=== PATIENT | female | born 1975 | race Caucasian/White ===

== ENCOUNTER 2017-08-29 08:28 | Outpatient (RCR) | payer OTHER, SELFPAY ==
--- NOTE | 2017-08-29 14:23 | BH.SGPN ---
Service Group Progress Note - Session Psychotherapy Session #2 Date Open:: 08/29/17 Time Started:: 10:10 Time Stopped:: 11:04 Targeted Problem #:: 1 Type of Group:: Illness Management - 7 Participants Goal of Group:: To increase understanding of mindfulness and explore the benefits of mindfulness and what thoughts are prohibiting group members from staying in the here and now. Client Response/Progress/Benefit:: Client entered session alert and attentive AEB nodding in agreement with peers and taking notes. Client contributed well to group. Client participated in group discussion about the difficulties of staying in the present moment. Client participated in group activity designed to reduce negative thoughts and current stressors. Client completed stressor worksheet and was tearful throughout much of the activity. Client identified various stressors including, never going to get better, stressing out my and my kids, and not know whats wrong with me. Client elaborated to say, I just dont see how any of this is going to help. I had a break down in front of my daughter. Therapist informed client about the effects of depression and feelings of hopelessness and peers provided support. Client benefitted from group by identifying current stressors in life and the impact they have on daily functioning. Progress noted in clients ability to identify stressors in life. Continued treatment necessary to decrease levels of anxiety and depressive symptoms. Eye Contact:: Fair Motor Activity:: Appropriate Appearance:: Casual Speech:: Appropriate Mood:: Anxious - boucing legs Affect:: Congruent Thoughts:: Linear, Logical, No evidence of hallucinations/delusions noted Staff Interventions:: Therapist facilitated discussion about mindfulness and benefits mindfulness practice can have. Therapist led group in an experiential activity designed to reduce negative thoughts and worries and bring client into the present moment and practice techniques designed to reduce anxiety and stress. Therapist provided a worksheet to complete that asked questions about possible stressor and overwhelming thoughts that take up their attention. Therapist led in the processing of the activity, worksheet, and assisted client in connecting how when faced with overwhelming thoughts or negative self-talk and the impact it has to daily functioning. Psychotherapy Session #3 Date Open:: 08/29/17 Time Started:: 11:10 Time Stopped:: 12:05 Targeted Problem #:: 1 Type of Group:: Functional Skills Development - 7 Participants Goal of Group:: To identify the impact that negative thinking patterns has had on group members lives and how using mindfulness techniques and coping strategies can assist group members in managing overwhelming thoughts and feelings. Client Response/Progress/Benefit:: Client was alert and attentive. Client participated in group discussion about coping strategies to use to bring client back to the here and now and provided examples of coping strategies she uses such as yoga. Client created a mindfulness kit and chose things that she thought looked pretty and all the coping skills to practice. Client was beginning to feel overwhelmed which skills to choose from and peers provided support and encouraged her to take her time. Client created a stress ball and identified the coping strategies she would use to decrease her worries as, [id number], breathing, SOS, and being kind to myself. Client benefitted from creating a mindfulness to that includes tangible items that can help client to remember to use positive skills that can be helpful to her identifying ruminating thoughts. Progress noted in clients ability to identify coping skills that are beneficial to her stressors. Continued treatment necessary to decrease anxiety levels. Eye Contact:: Good Motor Activity:: Appropriate Appearance:: Casual Speech:: Appropriate Mood:: Anxious Affect:: Congruent Thoughts:: Linear, Logical, No evidence of hallucinations/delusions noted Staff Interventions:: Therapist discussed varying coping strategies to use to reduce ruminating thoughts. Therapist provided each group member with various types of items and asked each member to select five items that represent something that would be helpful in creating awareness of warning signs and that will assist in bringing clients back to present moment. Therapist facilitated group processing of the mindfulness kits that each group member created. Therapist used open-ended questions to encourage elaboration of each time chosen for their kits. Therapist helped clients connect how the mindfulness kits can be used as a prevention tool and reminder to use mindfulness strategies.
--- NOTE | 2017-08-29 15:08 | BH.MDN ---
Multi-Disciplinary Note - Note 60-min Individual Time Started:: 12:15 Date: 08/29/17 Purpose of session/treatment goals addressed:: The purpose of this session was to build rapport with client and gather information on client's current stressors, symptoms, functioning, and treatment goals. Eye Contact:: Fair Motor Activity:: Restless - AEB shaking leg and rubbing arms Appearance:: Neat Speech:: Rapid Mood:: Anxious, Dysthymic Affect:: Congruent - tearful Thoughts:: Circular, No evidence of hallucinations/delusions noted Staff Interventions:: Therapist used open-ended questions and active listening to explore client's current stressors, symptoms, functioning, and treatment goals. Therapist provided emotional validation and support as client expressed frustration with mental health symptoms. Therapist helped client identify warning signs, supports, and past helpful coping skills. Client Response:: Client open to meeting with therapist, engaged throughout. Client reported she came PHP as her anxiety and depression have worsened since April. Client shared I've had so many medication changes and I think that's why I feel this way. Client stated her psychiatrist referred her to the program due to client's increased severity and passive suicidal thoughts. Client shared she is unsure of a specific trigger which leads client to believe her symptoms are all medication induced. Client was receptive to discussion of external and internal stressors that contribute to mental health. Client shared she has had anxiety since she was 21, but then I took medication and it was fine. Client expressed she is frustrated that she cannot fix her symptoms by herself as well as that client is unsure of the problem. Client reported she had a panic attack in June and has been struggling with depression. Client shared she has loss of concentration, agitation, restlessness, and no appetite. Client stated current use of Lexapro, but reports belief it is not helpful. Client frequently used the statement it's like I went backwards throughout session which demonstrates client's feelings of shame, guilt, and hopelessness. Client stated her , [id number], and friends are supportive and have helped client throughout this time. Client reported in the past getting out of the house, talking to people, yoga, and having a daily routine helped client cope. Risks/Concerns:: Client reports high anxiety, agitation, and restlessness that increases negative thinking. Client denies suicidal ideation, plan, and intent. Client future oriented throughout session as evidenced by her reports of family and returning to work. Progress Toward Goals/Plan:: Client first day in PHP, therefore no progress to document at this time. Client to continue PHP to promote mood stability, medication management, increase coping skills, and prevent decompensation. Time Stopped:: 13:10
--- NOTE | 2017-08-29 16:03 | BH.SGPN_ITS ---
Service Group Progress Note - Session Psychotherapy Session #1 Date Open:: 08/29/17 Time Started:: 09:01 Time Stopped:: 09:58 Targeted Problem #:: 1 Type of Group:: Process - 7 participants Goal of Group:: The goal of today's group was to check-in with client's mood, stressors, and positives, review homework and introduce topic for the day. Client Response/Progress/Benefit:: Client first day in the program and initially took on an observatory role as she was adjusting to group dynamics. Client appeared to benefit from the open and inviting atmosphere of the group as well as the supportive feedback and encouragement provided as Client discussed difficulties managing sx of anxiety. Client did well to engage with the group and openly shared with the group. She reports previously experiencing panic and anxiety sx during her early adulthood and had successfully managed them up until now. Client unable to identify any new triggers or stressors contributing to the resurfacing of her symptoms. When asked how she previously managed her sx, client indicated i don't know, it just wasn't a problem...I don 't know why this is happening to me. Client recommended continued PHP tx to work on maintaining stability and increasing level of understanding and awareness regarding Client warning signs, triggers, and potential healthy coping mechanisms related to anxiety. Eye Contact:: Good Motor Activity:: Restless - AEB fidgetting with shirt, rubbing hands on jeans, and shaking leg Appearance:: Casual Speech:: Appropriate Mood:: Anxious, Irritable, Depressed Affect:: Congruent Thoughts:: Linear, Logical, No evidence of hallucinations/delusions noted Staff Interventions:: Therapist used open-ended questions to elicit information about client's current stressors and mood state. Therapist was supportive by using active listening and reflection.
--- NOTE | 2017-08-30 10:27 | BH.SGPN ---
Service Group Progress Note - Session Psychotherapy Session #1 Date Open:: 08/30/17 - 7 group members Time Started:: 08:57 Time Stopped:: 10:07 Targeted Problem #:: 1 Type of Group:: Process Goal of Group:: The goal of today's group was to check-in with client's mood, stressors, and positives, review homework and introduce topic for the day. Client Response/Progress/Benefit:: Client responded well to session, quiet, but participating when prompted by therapist. Client reports feeling apprehensive today as client continues to have uncertainty about PHP and mental health treatment. Client shared after she left group yesterday I threw myself a pity alliance party. Client stated this made her feel worse and led to negative thinking. Client reported she contacted her boss and he was supportive of client needing time off work for mental health. Client expressed she felt guilt about missing work, but with group and therapist feedback, client challenged the guilt by stating I'm working on me so I can function. Client appeared to benefit from challenging negative thoughts and receiving supportive statements from peers. Eye Contact:: Fair Motor Activity:: Restless - AEB rubbing legs and arms, moving in chair. Appearance:: Casual Speech:: Appropriate Mood:: Anxious, Dysthymic Affect:: Congruent Thoughts:: Racing, No evidence of hallucinations/delusions noted Staff Interventions:: Therapist used open-ended questions to elicit information about client's current stressors and mood state. Therapist was supportive by using active listening and reflection.
--- NOTE | 2017-08-30 13:26 | BH.SGPN ---
Service Group Progress Note - Session Psychotherapy Session #2 Date Open:: 08/30/17 Time Started:: 10:20 Time Stopped:: 11:10 Targeted Problem #:: 1 Type of Group:: Process - 7 participants Goal of Group:: To increase understanding of what strengths are and identify individual strengths. Client Response/Progress/Benefit:: Client second day in PHP program and is still adjusting to the dynamics of the group, taking on a passive participatory role during portions of the discussion. CLient did well to engage as group progressed and provided input regarding the importance of challenging negative self-talk and identifying one's personal strengths. CLient shared knowing that how she speaks to herself is impacting her anxiety and depression but struggles to focus on the positives. Client benefited from the activity in which participants were challenged to identify 5 personal strengths and indicated that her strengths include her sense of humor, honesty, reliability, and ability to be a good and mother. Client displayed progress in her willingness to open up to the group and begin to try and challenge her use of self depricating talk. She appears to struggle with significant distorted thinking patterns and little insight as to how she may challenge this thoughts. Recommended ongoing PHP to increase insight and understanding of her anxiety as well as identify strategies to decrease frequency and intensity of sx. Eye Contact:: Good Motor Activity:: Appropriate Appearance:: Casual Speech:: Appropriate Mood:: Anxious, Depressed Thoughts:: Linear, Logical, No evidence of hallucinations/delusions noted Staff Interventions:: Therapist facilitated discussion about what are strengths and assisted group members in identifying examples of strengths. Therapist led an activity in which group members were given the opportunity to identify five personal strengths and how not utilizing these strengths may prevent progress and successful management of mental health symptoms. Therapist assisted clients in connecting the importance of recognizing personal strengths in order to most effectively manage mental health symptoms. Psychotherapy Session #3 Date Open:: 08/30/17 Time Started:: 11:19 Time Stopped:: 12:17 Targeted Problem #:: 1 Type of Group:: Functional Skills Development - 6 participants Goal of Group:: To identify what gets in their way of recognizing and utilizing their strengths and identifying ways to challenge negative thoughts preventing strengths recognition as well as make strengths easier to access. Client Response/Progress/Benefit:: Client attentive and willing to participate in both the discussion and activity portions of the session. She worked with fellow participants to complete the cup stacking activity challenging group members to identify ways overcome the restrictions placed on the group in order to complete the task. Client did well to connect the activity with challenging her perspective regarding potential weaknesses or negative thoughts. Client benefited from taking time to complete perspective challenging worksheet. She identified that she could challenge her thought of the anxiety is going to take over with I have been able to overcome this before and I haven't failed if I keep trying to fight. Client recommended continued PHP to further challenge and replace distorted thinking patterns. Eye Contact:: Fair Motor Activity:: Appropriate Appearance:: Casual Speech:: Appropriate Mood:: Anxious, Depressed Affect:: Congruent Thoughts:: Linear, Logical, No evidence of hallucinations/delusions noted Staff Interventions:: Therapist utilized an activity as a tool in helping clients recognize the things that can get in their way from utilizing their strengths and identify alternative ways to view these barriers. Therapist processed the activity, helping others connect challenges that keep them from recognizing and using their strengths. Therapist provided support by using active listening and providing feedback.
--- NOTE | 2017-08-30 13:47 | BH.MDN ---
Multi-Disciplinary Note - Note 60-min Individual Time Started:: 12:32 Date: 08/30/17 Purpose of session/treatment goals addressed:: The purpose of this session was to address client's current stressors, symptoms, cognitive distortions and functioning. Another goal was to increase client's awareness of cognitive distortions and practice reframing negative thoughts. Other topics included: external vs. internal stressors and healthy coping skills. Eye Contact:: Good Motor Activity:: Restless Appearance:: Neat - Client's face was slightly red and had somewhat of a rash forming on her neck. Speech:: Rapid Mood:: Anxious, Dysthymic Affect:: Congruent - tearful at times Thoughts:: Racing, No evidence of hallucinations/delusions noted Staff Interventions:: Therapist used open-ended questions to explore client's current stressors, symptoms, cognitive distortions, and functioning. Therapist used the CBT thought, emotion, behavior model to help client increase awareness of unhealthy maintenance cycles that exacerbate anxiety and depression. Therapist assisted client in increasing awareness by identifying and challenging negative thoughts. Therapist used strengths-perspective to help client identify positive traits she possesses. Therapist gave client homework to help client gain awareness of cognitive distortions and practice challenging them. Client Response:: Client open to meeting with therapist, engaged throughout. Client reported she continues to feel high anxiety-mostly in the morning-and have ruminating thoughts regarding medication. Client shared I don't know how much of this is me and how much it's the meds. Client responded well to discussion of stressors, in control and out of her control, and the positive and negative ways client contributes to them. Client stated she has no control of negative thoughts that pop in her head and cause anxiety or the medication, but she can do things to make her either feel better or worse. Client reported challenging negative thoughts is helpful for client as it makes sense, but it's hard because the thoughts seem so true. Client able to recognize that thoughts are thoughts, not facts. Client shared a recent triggering situation and processed the emotions, thoughts, and physical sensations with therapist. Client able to identify her cognitive distortions and shared I go down the rabbit hole fast. Client challenged her distorted thoughts by looking at the evidenced against the thought. Client reframed I'm worthless and I'm not getting any better by stating my family loves me, I'm doing what's best for me, and I'm not in the hospital. Client challenged some of her negative thoughts by thinking would I say this to my daughter? Client reflected on her frequent use of negative thoughts and agreed to keep track of her negative thoughts and challenge them this evening. Risks/Concerns:: Client denies suicidal ideation, plan, and intent as of 08/30/17. Client identifies her and daughters as protective factors. Client future oriented throughout session, discussing plans for this evening. Progress Toward Goals/Plan:: Client's second day in PHP, limited progress towards treatment goals. Client appeared less anxious today as evidenced by her report of feeling a little better and her increased concentration during individual session. Client reports improved receptiveness to PHP and implementing coping skills. Client to continue PHP to prevent decompensation, increase mood stability, and develop healthy coping skills. Time Stopped:: 13:26
--- NOTE | 2017-08-30 14:21 | BH.MDN_ITS ---
Multi-Disciplinary Note - Note 60-min Individual Time Started:: 12:32 Date: 08/30/17 Purpose of session/treatment goals addressed:: The purpose of this session was to address client's current stressors, symptoms, cognitive distortions and functioning. Another goal was to increase client's awareness of cognitive distortions and practice reframing negative thoughts. Other topics included: external vs. internal stressors and healthy coping skills. Eye Contact:: Good Motor Activity:: Restless Appearance:: Neat - Client's face was slightly red and had somewhat of a rash forming on her neck. Speech:: Rapid Mood:: Anxious, Dysthymic Affect:: Congruent - tearful at times Thoughts:: Racing, No evidence of hallucinations/delusions noted Staff Interventions:: Therapist used open-ended questions to explore client's current stressors, symptoms, cognitive distortions, and functioning. Therapist used the CBT thought, emotion, behavior model to help client increase awareness of unhealthy maintenance cycles that exacerbate anxiety and depression. Therapist assisted client in increasing awareness by identifying and challenging negative thoughts. Therapist used strengths-perspective to help client identify positive traits she possesses. Therapist gave client homework to help client gain awareness of cognitive distortions and practice challenging them. Client Response:: Client open to meeting with therapist, engaged throughout. Client reported she continues to feel high anxiety-mostly in the morning-and have ruminating thoughts regarding medication. Client shared I don't know how much of this is me and how much it's the meds. Client responded well to discussion of stressors, in control and out of her control, and the positive and negative ways client contributes to them. Client stated she has no control of negative thoughts that pop in her head and cause anxiety or the medication , but she can do things to make her either feel better or worse. Client reported challenging negative thoughts is helpful for client as it makes sense , but it's hard because the thoughts seem so true. Client able to recognize that thoughts are thoughts, not facts. Client shared a recent triggering situation and processed the emotions, thoughts, and physical sensations with therapist. Client able to identify her cognitive distortions and shared I go down the rabbit hole fast. Client challenged her distorted thoughts by looking at the evidenced against the thought. Client reframed I'm worthless and I'm not getting any better by stating my family loves me, I'm doing what's best for me, and I'm not in the hospital. Client challenged some of her negative thoughts by thinking would I say this to my daughter? Client reflected on her frequent use of negative thoughts and agreed to keep track of her negative thoughts and challenge them this evening. Risks/Concerns:: Client denies suicidal ideation, plan, and intent as of . Client identifies her and daughters as protective factors. Client future oriented throughout session, discussing plans for this evening. Progress Toward Goals/Plan:: Client's second day in PHP, limited progress towards treatment goals. Client appeared less anxious today as evidenced by her report of feeling a little better and her increased concentration during individual session. Client reports improved receptiveness to PHP and implementing coping skills. Client to continue PHP to prevent decompensation, increase mood stability, and develop healthy coping skills. Time Stopped:: 13:26
--- NOTE | 2017-08-31 10:31 | BH.SGPN_ITS ---
Service Group Progress Note - Session Psychotherapy Session #1 Date Open:: 08/31/17 - 6 group members Time Started:: 09:04 Time Stopped:: 10:00 Targeted Problem #:: 1 Type of Group:: Process Goal of Group:: The goal of today's group was to check-in with client's mood, stressors, and positives, review homework and introduce topic for the day. Client Response/Progress/Benefit:: Client responded well to session, active participant. Client reports feeling ?a little anxious? today as client woke up with ?this agitated feeling? and continues to have thoughts of ?what if nothing helps.? Client reported she has been working to challenge her cognitive distortions per client?s report of ?trying to think more positive.? Client reported she was able to utilize thought challenge and her social supports yesterday to reduce anxiety. Client shared ?I went from a 7 to about a 4.? Client was receptive to praise given by therapist on client?s success with utilizing coping skills. Client appeared to benefit from reflecting on her generalization of coping skills. Client progressing as evidenced by her report of symptom reduction from implementation of coping skills, but can continue to benefit from challenging negative thoughts. Eye Contact:: Good Motor Activity:: Restless Appearance:: Neat Speech:: Rapid Mood:: Anxious Affect:: Congruent Thoughts:: Linear, No evidence of hallucinations/delusions noted Staff Interventions:: Therapist used open-ended questions to elicit information about client's current stressors and mood state. Therapist was supportive by using active listening and reflection.
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
--- NOTE | 2017-08-31 10:56 | BH.MTP_ITS ---
Master Treatment Plan - Patient Information Program Physician:: Ashly Morel Primary Therapist:: Natasha Ham - Psychiatric Diagnoses Psychiatric Diagnoses:: Major depressive disorder. Generalized anxiety disorder Diagnosis Code(s):: F 33.2 - Estimated LOS Estimated LOS (in weeks):: 1 Problem/Goal #1 - Problem/Goal #1 Stated Goal:: Client will reduce depression, feelings of hopelessness, anhedonia , and negative core belieds due to Major Depressive Disorder. Description of Barriers: Client had recent medication changes that client believes brought on increased anxiety, restlessness, and ruminations. Client has strong family support, but reports belief ?I should be able to fix this on my own.? Client appears to have high expectations of self and unrealistic expectations for progress that conflict with client?s current state of functioning and creates internal conflict. Client endorses a depressed mood, lack of concentration, and anhedonia. Client reports negative thoughts of self and mental health which could hinder acceptance and progress of small goals. Functional Impact: Client reports a history of anxiety and depression, that has been managed through medication since client was in her early twenties. Client reports her symptoms ?came back? this February with symptoms worsening in April. Client reports restlessness, agitation, decreased appetite, negative thinking, low motivation, depressed mood, lack of concentration, uncontrollable worries, and passive thoughts of suicide. Client reports belief her symptoms became more severe after a recent medication change two weeks ago. Client?s symptoms have impacted her overall quality of life and ability to function at her baseline as client is currently off from work, and reports difficulty completing tasks at home and engaging with her family. Goal Relevant Strengths/Supports: Client presents with high motivation to get better and reports strong mental health support from family and friends. Client demonstrates good insight to warning signs, symptoms, and negative thoughts that exacerbate anxiety and depression. Client is intelligent, open-minded, and caring. Client identifies her personal strengths as having a good sense of humor and being a good and mother. - Objectives Objective #1 Stated Objective: Client will identify and replace 2-3 negative thinking patterns that mediate feelings of hopelessness and low self-worth. Interventions: Through groups and individual therapy, client will be provided with education on cognitive distortions, mistaken beliefs, and identifying and combating negative self-talk. Therapist will help client explore connection between thoughts, feelings, and actions and teach client strategies to reframe distorted thoughts. Discharge Criteria: Client will be able to identify 2-3 negative thinking patterns and be able to effectively stop, challenge, or cope with those negative thoughts. Target Date: 09/05/17 Review Date: 09/05/17 Status: open Objective #2 Stated Objective: Client will increase self-care, physical regulation, and engagement with positive relationships to 2-3 activities a week to reduce depressive symptoms. Interventions: Therapist will help client explore barriers that keep client for engaging in enjoyable activities and develop strategies to overcome barriers. Therapist will assist client in creating weekly goals to promote self-care and reduce isolation. Therapist will utilize behavioral activation strategies and decisional balance exercises to help increase client awareness of how behaviors impact emotions and thoughts. Discharge Criteria: Client will have accomplished this goal when can report engaging in at least two activities per week that promote self-care, emotional regulation, or positive relationships. Target Date: 09/05/17 Review Date: 09/05/17 Status: open Problem/Goal #2 - Problem/Goal #2 Stated Goal:: Client will reduce anxiety level while increasing ability to function and decreasing ruminative thoughts on a daily basis. Description of Barriers: Client had recent medication changes that client believes brought on increased anxiety, restlessness, and ruminations. Client has strong family support, but reports belief ?I should be able to fix this on my own.? Client appears to have high expectations of self and unrealistic expectations for progress that conflict with client?s current state of functioning and as a result creates internal conflict. Client endorses a depressed mood, lack of concentration, and anhedonia. Client reports negative thoughts of self and mental health which could hinder acceptance and progress of small goals. Functional Impact: Client reports a history of anxiety and depression, that has been managed through medication since client was in her early twenties. Client reports her symptoms ?came back? this February with symptoms worsening in April. Client reports restlessness, agitation, decreased appetite, negative thinking, low motivation, depressed mood, lack of concentration, uncontrollable worries, and passive thoughts of suicide. Client reports belief her symptoms became more severe after a recent medication change two weeks ago. Client?s symptoms have impacted her overall quality of life and ability to function at her baseline as client is currently off from work, and reports difficulty completing tasks at home and engaging with her family. Goal Relevant Strengths/Supports: Client presents with high motivation to get better and reports strong mental health support from family and friends. Client demonstrates good insight to warning signs, symptoms, and negative thoughts that exacerbate anxiety and depression. Client is intelligent, open-minded, and caring. Client identifies her personal strengths as having a good sense of humor and being a good and mother. - Objectives Objective #1 Stated Objective: Client will identify 2-3 anxiety producing thoughts that tend to create rumination and anxiety and learn 2-3 strategies to challenge and reframe the cognitive distortions. Interventions: Therapist will help client explore cognitive distortions that increase rumination and anxiety. Therapist will implement mindfulness and CBT techniques to help client identify and reframe negative thoughts while increasing client's ability to be present. Discharge Criteria: Client will have achieved this objective when able to verbalize anxiety-producing thoughts and identify 2-3 ways to cope with them. Target Date: 09/05/17 Review Date: 09/05/17 Status: open
--- NOTE | 2017-08-31 13:21 | BH.MDN ---
Multi-Disciplinary Note - Note 60-min Individual Time Started:: 12:10 Date: 08/31/17 Purpose of session/treatment goals addressed:: The purpose of this session was to increase client's awareness of cognitive distortions while utilizing strategies to challenge and reframe negative thinking. Another goal was to address client's expectations for progress and increase awaress of how this impacts client's mental health. Eye Contact:: Good Motor Activity:: Restless Appearance:: Casual Speech:: Other - circumstantial Mood:: Anxious Affect:: Congruent - became tearful Thoughts:: Linear, No evidence of hallucinations/delusions noted Staff Interventions:: Therapist used open-ended and scaling questions to help client explore her current stressors, intensity of symptoms, and negative thoughts. Therapist used CBT to increase client awareness of how thoughts impact emotions and behaviors. Therapist helped client identify her most common negative thoughts and then assisted client in challenging these thoughts. Therapist and client discussed realistic versus unrealistic expectations and how these impact client's overall well-being. Client Response:: Client responded well to session, engaged throughout. Client reported I still wake up with this agitated feeling in the morning but able to recognize this feeling goes down throughout the day. Client stated overall her anxiety has been worse in the mornings, but client is unsure of the reason. Client stated she continues to struggle with not knowing what brought on her increased anxiety as client stated, it has to be the medication, this anxiety can't just be me. Client shared she has been focusing on external solutions rather than how she can manage symptoms. Client reported when she focuses on the medication it makes client spiral and worry more. Client and therapist discussed negative thoughts and negative core beliefs of self. Client shared she thinks of herself a failure as client is currently not working, not cooking or cleaning, and not keeping up with the house. Client able to challenge her definition of failure by reframing the negative thoughts and expectations. Client shared other people have taken time off work before and I'm taking care of myself right now. Client shared her current expectations of progress are for the anxiety to just go away however, with therapist elicitation, client recognized this is unrealistic. Client reframed her expectations by sharing she will focus on reducing the intensity of symptoms in the mornings. Client shared last night she got out of the house and spent time with supports at [facility] which reduced anxiety. Client reflected that getting out and talking with others benefits client and reports to try to get out again today. Risks/Concerns:: Client denies suicidal ideation, plan, and intent as of 08/31/17. Client reports looking forward to taking her daughter to basketball tonight which demonstrates future orientation. Progress Toward Goals/Plan:: Client still new in PHP program, but demonstrating progress with increased self-awareness and identifying negative thoughts. Client continues to report belief this anxiety can't just be me only and that her symptoms are due to medication changes which could hinder client's willingness to implement coping skills. Client to continue PHP to promote mood stability and develop healthy coping skills. Time Stopped:: 13:10
--- NOTE | 2017-08-31 14:52 | BH.SGPN ---
Service Group Progress Note - Session Psychotherapy Session #2 Date Open:: 08/31/17 Time Started:: 10:10 Time Stopped:: 11:03 Targeted Problem #:: 1 Type of Group:: Illness Management Goal of Group:: The goal of group was to increase understanding of goals and goal setting and practice a method of goal setting. Client Response/Progress/Benefit:: Pt contributed at times to discussion and listened attentively to others. Pt connected with the quote, shared every goal she has had helped her explain her anxiety because it made since, however now she has no big goal, but is still feeling extremely anxious, which doesn't make sense. Pt reported when doesn't have a goal it makes her feel stuck like there is no direction. Pt able to identify importance of goals, but identified folloiwng through with goals she sets is the hard part. Pt seemed to benefit [facility] group activity that gave opportunity to rehearse goal setting. Eye Contact:: Fair Motor Activity:: Appropriate Appearance:: Casual Speech:: Appropriate Mood:: Anxious, Dysthymic Affect:: Constricted Thoughts:: Linear, Logical, No evidence of hallucinations/delusions noted Staff Interventions:: Therapist facilitated group discussion about goals and goal setting. Therapist taught group the acronym SMART (Specific, Measurable, Achievable, Realistic, Timely) as a tool to help with goal setting. Therapist led the group in an activity to be used as a method of practicing goal setting. Therapist guided the group through the SMART acronym as group was participating in activity. Therapist assisted group members with connecting the importance of making small, realistic goals. Psychotherapy Session #3 Date Open:: 08/31/17 Time Started:: 11:13 Time Stopped:: 12:03 Targeted Problem #:: 1 Type of Group:: Functional Skills Development Goal of Group:: The goal of group was to identify a goal for the weekend, explore the potential barriers to achieving that set goal, and identify strategies to overcome barriers. Client Response/Progress/Benefit:: Pt quiet unless elicited by therapist, listened attentively to others. Pt identified for her goal she will say 5 positive things about her day everyday. Pt identified barriers to achieving this goal include: forgetting, being in a hurry, don't believe the positives to be true. Pt reported ways to combat the obstacles include: setting a specific time frame to complete the positives and remind herself of the potential outcome of completing the goal. Pt seemed to benefit from setting a specific goal as well as being aware of what will support her to successfully complete goal. Eye Contact:: Fair Motor Activity:: Appropriate Appearance:: Casual Speech:: Appropriate Mood:: Anxious, Dysthymic Affect:: Constricted Thoughts:: Linear, Logical, No evidence of hallucinations/delusions noted Staff Interventions:: Therapist facilitated group activity in which group members identified a goal to work on over the next week. Therapist asked group members to identify barriers to achieving identified goal and strategies to help them achieve their goal. Therapist led group in processing their goal maps, assisting clients with establishing SMART goals. Therapist provided support by using reflective listening.
--- NOTE | 2017-09-01 14:26 | BH.MDN ---
Multi-Disciplinary Note - Note 60-min Individual Time Started:: 12:38 Date: 09/01/17 Purpose of session/treatment goals addressed:: The purpose of this session was to address client's current symptoms, stressors, and use of coping skills. Another goal was to create a plan for the weekend to promote self-care, socialization, and the use of healthy coping skills to reduce anxiety and depression. Eye Contact:: Fair Motor Activity:: Restless - leg shaking and rubbing arms throughout. Appearance:: Neat Speech:: Appropriate Mood:: Anxious, Depressed Affect:: Constricted Thoughts:: Racing, No evidence of hallucinations/delusions noted Staff Interventions:: Therapist used open-ended questions to explore client's current symptoms, stressors, and use of coping skills. Therapist helped client create a plan for the weekend to increase socialization and promote the use of healthy coping skills. Therapist assisted client in exploring ambivalence by using a decisional balance worksheet. Therapist used strengths perspective to empower client and provide emotional support. Client Response:: Client open to meeting with therapist, engaged throughout. Client reported she feels better after meeting with AC as client was taken off her medication. Client shared she said I should feel better over the weekend. Client reported the medication was creating the increased restlessness and is hopeful her symptoms with decrease now that client is off the medication. Client shared she continues to ruminate and struggle with the uncertainty of her mental health. Client and therapist processed clients feelings and discussed positive ways to cope with rumination and uncertainty. Client able to recognize medication is only one part of treatment and was willing to set goals for the weekend to help client cope. Client shared she feels best when she has a routine. Client identified two goals for each day over the weekend to help client get out and engage with positive supports. Client goals included spending time with family by going to dinner, the movies, and taoism. Client stated, I know I'll feel better once I'm doing it. Client rated the difficulty of each goal and shared I think all of these are doable for me right now. Client and therapist reviewed healthy coping skills and client agreed to continue to challenge negative thoughts. Risks/Concerns:: Client denies suicidal ideation, plan, and intent as of 09/01/17. Client reports belief she can maintain safety over the weekend. Client future oriented throughout session as evidenced by her report of weekend plans with family. Progress Toward Goals/Plan:: Client showing progress towards treatment goals as she reports generalizing coping skills learned in individual and group sessions. Client reports exercising more and trying to think positive. Client can continue to benefit from challenging negative thoughts and increasing awareness of how her high expectations and focus on external solutions can hinder progress. Client to continue PHP to promote mood stability and increase emotional regulation. Time Stopped:: 13:32
--- NOTE | 2017-09-01 14:26 | PCM.HP.BLA ---
History and Physical Identifying information 41-year-old female presents to the [facility] with chief complaint of I have generalized anxiety disorder and panic. I cannot sit still. I think it is the medication. History is been obtained per interview with patient, discussion with staff, review of chart. Case discussed with treatment team. History of present illness Patient is a 41-year-old female who presents to the [facility] with chief complaint of depression and anxiety interfering with work functioning. 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 She reports a long-standing history of depression and anxiety which had been well controlled with Cymbalta 30 mg daily for more than 10 years. She has been unable to tolerate recent medication changes made an effort to control her increased depression and anxiety. When her psychiatric symptoms worsened her primary care physician increased her Cymbalta to 60 mg which is intolerable due to heart palpitations. She then began seeing a psychiatric [facility] at [facility]. Her Cymbalta was decreased to 40 mg with ongoing side effects. She had a 5 week trial of Zoloft 50 mg which resulted in akathisia. She had a 2 week trial of Remeron 7.5 mg which resulted in excessive somnolence. She was then off medication for 5 week period but had increased depression. She tried BuSpar with resultant akathisia which she discontinued and then tried Lexapro 5 mg daily which she has been on for the past 11 days but notes excessive physical restlessness. She endorses ruminative anxiety about multiple factors. She had one panic attack in June which resulted in a visit to the emergency department. She has depressed mood which she associates with anxiety. Fleeting suicidal thoughts because she once the agitation to stop she denies current suicidal ideation. She denies suicide plan or intent. Feels able to maintain safety. No homicidal ideation related to her detected. No hallucinations related to detected. No symptoms consistent with garret. Decreased appetite with 33 pound weight loss since April. Sleeping from 11 PM to 7 AM but notes that sleep is interrupted. Denies obsessions or compulsions. Denies history of eating disorder. Past psychiatric history Patient was first treated at age 21 for anxiety. She had depression after her first daughter. She denies previous psychiatric hospitalization. She currently sees our nurse practitioner [facility]. She has previously tried Paxil which caused somnolence. She felt Effexor was helpful in the past. She feels Cymbalta 30 mg daily was helpful in the past. She tried hydroxyzine which caused somnolence. Further recent medication trials as above. Substance use history Patient denies smoking, alcohol, illicit drugs. Past medical history PCO S No seizure or head injury Review of systems Complains of intermittent nausea. No fevers chills chest pain dyspnea. All other systems reviewed and negative except as above. Allergies-no known medical allergies Current medications Lexapro 5 mg daily ?11 days Xanax 0.25 mg which she takes as needed 3 times per week control pills Omeprazole Fish oil Vitamin D Vitamin B Primary care physician Dr. Arzate Family medical psychiatric history Mother with mental illness-possible schizophrenia Father with anxiety Daughter age 10 has OCD and panic Brother with panic Maternal uncle completed suicide Maternal aunt bipolar and completed suicide Developmental social history Patient was born and raised in [place]. She is the youngest of 6 children. She grew up with her parents and 5 siblings. Described growing up as unpredictable .There was a little neglect. Acknowledges that her mother was sick when she was growing up. Obtained a masters in education at [employer]. Teaches kindergarten for 16 years. Feels the current psychiatric symptoms are interfering with work function. for 16 years. Describes the marriage is awesome. 2 daughters ages 10 and 8. Legal history none Mental status exam Vital signs reviewed per nursing database and discussed with nursing. Patient is alert and oriented in no acute distress. Ambulatory with normal gait and station. Cooperative with the interview. Good eye contact. Casually dressed and groomed. Appropriate hygiene. Some psychomotor agitation as patient is unable to sit still during interview. Mood is depressed. Affect congruent. Speech is clear and if regular rate and volume. Language fluent. Thought process organized. Associations logical. Thought content significant for ruminative anxiety. Fleeting thoughts of . No suicide plan or intent. Feels able maintain safety. No homicidal ideation related to detected. No symptoms of psychosis related to detected. Immediate recent and remote memory grossly intact. Attention and concentration are good. Estimated intelligence fund of knowledge average. Judgment and insight are limited to fair. Labs and testing Thyroid tested in April and July unremarkable Vitamin D 62 Reverse T3 within normal limits Further lab work will be obtained as needed Diagnosis Generalized anxiety disorder Major depressive disorder recurrent severe PCO S Plan Admit PHP as the structured setting is necessary to prevent decompensation. Risks benefits alternatives of medications discussed with patient patient acknowledges understanding patient agrees to discontinue Lexapro as she is likely experiencing side effects/akathisia. Limit benzodiazepine use. Continue Xanax 0.25 mg as needed for panic. Continue vitamin D fish oil and vitamin B supplements. Encouraged follow-up with [facility]. Patient acknowledges understanding and is in agreement with plan. She feels able to maintain safety. She agrees to seek help or emergency care if feeling unsafe to self or others.
--- NOTE | 2017-09-01 14:27 | BH.SGPN ---
Service Group Progress Note - Session Psychotherapy Session #2 Date Open:: 09/01/17 Time Started:: 10:15 Time Stopped:: 11:06 Targeted Problem #:: 1 Type of Group:: Illness Management - 9 Participants Goal of Group:: To increase understanding of resilience and the importance of looking at problems in different ways. Client Response/Progress/Benefit:: Client entered session alert and attentive. Client appeared anxious AEB bouncing legs. Client connected with the days quote stating, After experiencing bad things one after another it feels like you cant climb out and its overwhelming and feels impossible. Client participated in group activity that allowed client to use problem solving skills in an area that may appear impossible but once working as a group and using different perspectives to solve the problem client was able to successfully complete activity. Client benefitted from group by gaining greater awareness of how ones outlook can impact mental health. Progress noted in clients ability to complete activity despite high anxiety levels. Continued treatment necessary to reduce anxiety levels and implement coping skills. Eye Contact:: Good Motor Activity:: Appropriate Appearance:: Casual Speech:: Appropriate Mood:: Anxious Affect:: Congruent Thoughts:: Linear, Logical, No evidence of hallucinations/delusions noted Staff Interventions:: Therapist facilitated discussion about resilience and the importance of being resilient in the face of adversity. Therapist led group in an activity that would initially seem impossible to complete, but once group members looked at the problem in a different way they would be able to see alternative solutions. Therapist utilized the activity as a tool to discuss overcoming those situations that seem impossible to get through.
--- NOTE | 2017-09-01 14:34 | BH.MDN_ITS ---
Multi-Disciplinary Note - Note 60-min Individual Time Started:: 12:38 Date: 09/01/17 Purpose of session/treatment goals addressed:: The purpose of this session was to address client's current symptoms, stressors, and use of coping skills. Another goal was to create a plan for the weekend to promote self-care, socialization, and the use of healthy coping skills to reduce anxiety and depression. Eye Contact:: Fair Motor Activity:: Restless - leg shaking and rubbing arms throughout. Appearance:: Neat Speech:: Appropriate Mood:: Anxious, Depressed Affect:: Constricted Thoughts:: Racing, No evidence of hallucinations/delusions noted Staff Interventions:: Therapist used open-ended questions to explore client's current symptoms, stressors, and use of coping skills. Therapist helped client create a plan for the weekend to increase socialization and promote the use of healthy coping skills. Therapist assisted client in exploring ambivalence by using a decisional balance worksheet. Therapist used strengths perspective to empower client and provide emotional support. Client Response:: Client open to meeting with therapist, engaged throughout. Client reported she feels better after meeting with AC as client was taken off her medication. Client shared she said I should feel better over the weekend. Client reported the medication was creating the increased restlessness and is hopeful her symptoms with decrease now that client is off the medication. Client shared she continues to ruminate and struggle with the uncertainty of her mental health. Client and therapist processed client?s feelings and discussed positive ways to cope with rumination and uncertainty. Client able to recognize medication is only one part of treatment and was willing to set goals for the weekend to help client cope. Client shared she feels best when she has a routine. Client identified two goals for each day over the weekend to help client get out and engage with positive supports. Client goals included spending time with family by going to dinner, the movies, and orthodox. Client stated, I know I'll feel better once I'm doing it. Client rated the difficulty of each goal and shared I think all of these are doable for me right now. Client and therapist reviewed healthy coping skills and client agreed to continue to challenge negative thoughts. Risks/Concerns:: Client denies suicidal ideation, plan, and intent as of . Client reports belief she can maintain safety over the weekend. Client future oriented throughout session as evidenced by her report of weekend plans with family. Progress Toward Goals/Plan:: Client showing progress towards treatment goals as she reports generalizing coping skills learned in individual and group sessions. Client reports exercising more and trying to think positive. Client can continue to benefit from challenging negative thoughts and increasing awareness of how her high expectations and focus on external solutions can hinder progress. Client to continue PHP to promote mood stability and increase emotional regulation. Time Stopped:: 13:32
--- NOTE | 2017-09-01 14:38 | BH.NA_ITS ---
Physical Data - Height/Weight Height: 1.63 m Weight:: 76.657 kg Weight in Pounds: 169.0 lbs Current Medication Compliance - Medication Compliance Do you take your medication as prescribed?: Yes Do you need assistance with taking medication?: No Have you had side effects from medication?: Yes - multiple, see Allergies Nutritional History - Appetite Nutritional Instructions:: If client shows signs of a swallowing problem, weight change of 10 pounds or more in the last month, or is on a diabetic diet, the physician will review and request a dietitian consult, as appropriate. All unintentional weight loss will be referred to the physician for decision on need for dietitian consult. Describe your appetite:: Poor Have you noticed a change in your eating habits lately?: Yes - no appetite x3-4 weeks # wt loss Functional Assessment - Activities Motor Activity:: Hyperactivity Sensory/Communication Assess - Hearing Problems Do you have any hearing problems?: Adequate - Communication Problems Do you have difficulty understanding what people are saying?: No Do you have trouble putting your thoughts into words or expressing what you want to say?: Yes Do people ever have trouble understanding what you say?: Yes What is your primary language?: Pashto Learning Assessment - Learning Barriers Learning Barriers:: Ready to learn Medical Problems/History - Metabolic Conditions Metabolic: Other (See comments) - PCOS - Pain Assessment Do you have acute or chronic pain?: No - Female Reproductive Do you think you may be ?: No Number of pregnancies:: 2 Number of children:: 2 Have you reached menopause?: No Do you have any history of breast disease?: No Suicide Assessment - Suicidal Ideation Are you currently or have you been suicidal in the past?: No Suicidal Intentional Rating Scale (SIRS): No suicidal thoughts (past or present) Physician Notification: If Active suicidal thoughts/Will not contract for safety is checked, contact physician and document in the Physician Notification section below. Assault History/Potential - History of Assault Do you have a history of assaulting someone?: No Physician Notification: If yes, notify physician and document notification date and time below. Fall Risk Assessment - Age Age: Less than 60 - Mental Status Mental Status: Willing & able to ask for assistance when needed - Physical Status Physical Status: No problems - Impairments Impairments: None - Elimination Elimination: Continent AND independent - Gait or Balance Gait or Balance: Walks independently - Hx of Falls History of falls in the past 6 months: No known history - Medications/Substances Psychotropics:: Anxiolytics (e.g. benzodiazepines) Medications/substances used within the past 24 hours or ordered to administer: 1 -2 of the medications/substances listed above - Total Score Total Points:: 1
--- NOTE | 2017-09-01 14:44 | HP.PCM_ITS ---
History and Physical Identifying information 41-year-old female presents to the [facility] with chief complaint of I have generalized anxiety disorder and panic. I cannot sit still. I think it is the medication. History is been obtained per interview with patient, discussion with staff, review of chart. Case discussed with treatment team. History of present illness Patient is a 41-year-old female who presents to the [facility] with chief complaint of depression and anxiety interfering with work functioning. She reports her psychiatric symptoms have been worse since April due to increased work stress as technology teacher and exacerbated within the past month due to multiple medication trials. She reports a long- standing history of depression and anxiety which had been well controlled with Cymbalta 30 mg daily for more than 10 years. She has been unable to tolerate recent medication changes made an effort to control her increased depression and anxiety. When her psychiatric symptoms worsened her primary care physician increased her Cymbalta to 60 mg which is intolerable due to heart palpitations. She then began seeing a psychiatric [facility] at [facility]. Her Cymbalta was decreased to 40 mg with ongoing side effects. She had a 5 week trial of Zoloft 50 mg which resulted in akathisia. She had a 2 week trial of Remeron 7.5 mg which resulted in excessive somnolence. She was then off medication for 5 week period but had increased depression. She tried BuSpar with resultant akathisia which she discontinued and then tried Lexapro 5 mg daily which she has been on for the past 11 days but notes excessive physical restlessness. She endorses ruminative anxiety about multiple factors. She had one panic attack in June which resulted in a visit to the emergency department. She has depressed mood which she associates with anxiety. Fleeting suicidal thoughts because she once the agitation to stop she denies current suicidal ideation. She denies suicide plan or intent. Feels able to maintain safety. No homicidal ideation related to her detected. No hallucinations related to detected. No symptoms consistent with garret. Decreased appetite with 33 pound weight loss since April. Sleeping from 11 PM to 7 AM but notes that sleep is interrupted. Denies obsessions or compulsions. Denies history of eating disorder. Past psychiatric history Patient was first treated at age 21 for anxiety. She had depression after her first daughter. She denies previous psychiatric hospitalization. She currently sees our nurse practitioner [facility]. She has previously tried Paxil which caused somnolence. She felt Effexor was helpful in the past. She feels Cymbalta 30 mg daily was helpful in the past. She tried hydroxyzine which caused somnolence. Further recent medication trials as above. Substance use history Patient denies smoking, alcohol, illicit drugs. Past medical history PCO S No seizure or head injury Review of systems Complains of intermittent nausea. No fevers chills chest pain dyspnea. All other systems reviewed and negative except as above. Allergies-no known medical allergies Current medications Lexapro 5 mg daily ?11 days Xanax 0.25 mg which she takes as needed 3 times per week control pills Omeprazole Fish oil Vitamin D Vitamin B Primary care physician Dr. Arzate Family medical psychiatric history Mother with mental illness-possible schizophrenia Father with anxiety Daughter age 10 has OCD and panic Brother with panic Maternal uncle completed suicide Maternal aunt bipolar and completed suicide Developmental social history Patient was born and raised in [place]. She is the youngest of 6 children. She grew up with her parents and 5 siblings. Described growing up as unpredictable .There was a little neglect. Acknowledges that her mother was sick when she was growing up. Obtained a masters in education at [employer]. Teaches kindergarten for 16 years. Feels the current psychiatric symptoms are interfering with work function. for 16 years. Describes the marriage is awesome. 2 daughters ages 10 and 8. Legal history none Mental status exam Vital signs reviewed per nursing database and discussed with nursing. Patient is alert and oriented in no acute distress. Ambulatory with normal gait and station. Cooperative with the interview. Good eye contact. Casually dressed and groomed. Appropriate hygiene. Some psychomotor agitation as patient is unable to sit still during interview. Mood is depressed. Affect congruent. Speech is clear and if regular rate and volume. Language fluent. Thought process organized. Associations logical. Thought content significant for ruminative anxiety. Fleeting thoughts of . No suicide plan or intent. Feels able maintain safety. No homicidal ideation related to detected. No symptoms of psychosis related to detected. Immediate recent and remote memory grossly intact. Attention and concentration are good. Estimated intelligence fund of knowledge average. Judgment and insight are limited to fair. Labs and testing Thyroid tested in April and July unremarkable Vitamin D 62 Reverse T3 within normal limits Further lab work will be obtained as needed Diagnosis Generalized anxiety disorder Major depressive disorder recurrent severe PCO S Plan Admit PHP as the structured setting is necessary to prevent decompensation. Risks benefits alternatives of medications discussed with patient patient acknowledges understanding patient agrees to discontinue Lexapro as she is likely experiencing side effects/akathisia. Limit benzodiazepine use. Continue Xanax 0.25 mg as needed for panic. Continue vitamin D fish oil and vitamin B supplements. Encouraged follow-up with [facility]. Patient acknowledges understanding and is in agreement with plan. She feels able to maintain safety. She agrees to seek help or emergency care if feeling unsafe to self or others.
--- NOTE | 2017-09-01 14:45 | BH.DR.ITP ---
Initial Treatment Plan - Patient Information Visit Information: ADMISSION DATE: EXPECTED LOS: 4-6 weeks Diagnoses:: Major depressive disorder. Generalized anxiety disorder - Problems/Symptoms Problem #1:: Anxiety Symptom:: Rumination, panic Problem #2:: depression Symptom:: Sad mood, anhedonia, suicidal ideation, biologic disruption of sleep and appetite
--- NOTE | 2017-09-03 11:04 | BH.SGPN_ITS ---
Service Group Progress Note - Session Psychotherapy Session #2 Date Open:: 08/31/17 Time Started:: 10:10 Time Stopped:: 11:03 Targeted Problem #:: 1 Type of Group:: Illness Management Goal of Group:: The goal of group was to increase understanding of goals and goal setting and practice a method of goal setting. Client Response/Progress/Benefit:: Pt contributed at times to discussion and listened attentively to others. Pt connected with the quote, shared every goal she has had helped her explain her anxiety because it made since, however now she has no big goal, but is still feeling extremely anxious, which doesn't make sense. Pt reported when doesn't have a goal it makes her feel stuck like there is no direction. Pt able to identify importance of goals, but identified folloiwng through with goals she sets is the hard part. Pt seemed to benefit [facility] group activity that gave opportunity to rehearse goal setting. Eye Contact:: Fair Motor Activity:: Appropriate Appearance:: Casual Speech:: Appropriate Mood:: Anxious, Dysthymic Affect:: Constricted Thoughts:: Linear, Logical, No evidence of hallucinations/delusions noted Staff Interventions:: Therapist facilitated group discussion about goals and goal setting. Therapist taught group the acronym SMART (Specific, Measurable, Achievable, Realistic, Timely) as a tool to help with goal setting. Therapist led the group in an activity to be used as a method of practicing goal setting. Therapist guided the group through the SMART acronym as group was participating in activity. Therapist assisted group members with connecting the importance of making small, realistic goals. Psychotherapy Session #3 Date Open:: 08/31/17 Time Started:: 11:13 Time Stopped:: 12:03 Targeted Problem #:: 1 Type of Group:: Functional Skills Development Goal of Group:: The goal of group was to identify a goal for the weekend, explore the potential barriers to achieving that set goal, and identify strategies to overcome barriers. Client Response/Progress/Benefit:: Pt quiet unless elicited by therapist, listened attentively to others. Pt identified for her goal she will say 5 positive things about her day everyday. Pt identified barriers to achieving this goal include: forgetting, being in a hurry, don't believe the positives to be true. Pt reported ways to combat the obstacles include: setting a specific time frame to complete the positives and remind herself of the potential outcome of completing the goal. Pt seemed to benefit from setting a specific goal as well as being aware of what will support her to successfully complete goal. Eye Contact:: Fair Motor Activity:: Appropriate Appearance:: Casual Speech:: Appropriate Mood:: Anxious, Dysthymic Affect:: Constricted Thoughts:: Linear, Logical, No evidence of hallucinations/delusions noted Staff Interventions:: Therapist facilitated group activity in which group members identified a goal to work on over the next week. Therapist asked group members to identify barriers to achieving identified goal and strategies to help them achieve their goal. Therapist led group in processing their goal maps , assisting clients with establishing SMART goals. Therapist provided support by using reflective listening.
--- NOTE | 2017-09-04 13:43 | BH.MDN ---
Multi-Disciplinary Note - Note Family Time Started:: 12:15 Date: 09/04/17 Purpose of session/treatment goals addressed:: The purpose of this session was to engage client's in the treatment process through use of psychoeducation and communication of mental health warning signs and needs. Another goal was to address unrealistic expectations and establish small goals for the week. Other topics included: cognitive distortions, somatic symptoms, and strengths. Eye Contact:: Good Motor Activity:: Restless - somewhat Appearance:: Casual Speech:: Appropriate Mood:: Anxious, Dysthymic Affect:: Constricted Thoughts:: Racing, No evidence of hallucinations/delusions noted Staff Interventions:: Therapist used active listening and open-ended questions to explore client's current stressors, symptoms, and mental health needs. Therapist elicited discussion between client and her to promote mental health support, open communication, and awareness of warning signs. Therapist educated client's on anxiety, depression, and cognitive distortions. Therapist explored client's unrealistic expectations and helped client set realistic goals to promote mental well-being. Therapist used strengths-perspective to help client focus on progress. Client Response:: Client responded well to session, engaged throughout. Client openly communicating with , Girma, about clients mental health needs, warning signs, and symptoms. Client shared it is helpful when her listens and helps client create strategies for distractions. However, client reported she would like Girma to avoid saying things such as just be positive as client shares it makes her feel increased anxiety. Client and Girma expressed they both feel helpless at times as client does not always know what triggers anxiety and depression and what could be helpful. With therapist elicitation, client reflected that her negative thinking, unrealistic expectations, and use of comparison are exacerbating clients symptoms and creating a negative maintenance cycle. Girma reported she wants it fixed now and she is using google a lot which both Girma and client agreed does not benefit clients mental health. Client stated she experiences frustration with her somatic symptoms and loss of appetite, but demonstrated good insight as client shared I know focusing on it only makes it worse. Client shared she continues to have ruminations regarding mental health and what if it doesnt get better. Client able to challenge some of her negative thoughts and reflected that she has made some progress. Girma stated client has progressed with being more receptive and having some good days. Girma and client discussed ways client could incorporate a more structured routine into her day to reduce depressive symptoms and increase motivation. Client was receptive to working on a lesson plan for when client returns to school. Client also shared it may be helpful to start exercising more and avoid internet searches. Risks/Concerns:: Client denies suicidal ideation, plan, and intent as of 09/04/17. Client identifies family as a protective factor and reports plan to spend time with a friend this Monday which demonstrates future orientation. Progress Toward Goals/Plan:: Client progressing towards treatment goals as evidenced by her report of reduced agitation, restlessness, and overall anxiety. Client continues to report increased anxiety in the mornings that subsides in severity in the afternoons. Client endorses a depressed mood, decreased appetite, and rumination. Client progressing with implementing healthy coping skills such as utilizing social supports and challenging negative thinking. Client to discharge from [facility] on 09/05/17 and begin IOP program to promote gains and mood stability. Time Stopped:: 13:25
--- NOTE | 2017-09-04 13:47 | BH.MDN_ITS ---
Multi-Disciplinary Note - Note Family Time Started:: 12:15 Date: 09/04/17 Purpose of session/treatment goals addressed:: The purpose of this session was to engage client's in the treatment process through use of psychoeducation and communication of mental health warning signs and needs. Another goal was to address unrealistic expectations and establish small goals for the week. Other topics included: cognitive distortions, somatic symptoms, and strengths. Eye Contact:: Good Motor Activity:: Restless - somewhat Appearance:: Casual Speech:: Appropriate Mood:: Anxious, Dysthymic Affect:: Constricted Thoughts:: Racing, No evidence of hallucinations/delusions noted Staff Interventions:: Therapist used active listening and open-ended questions to explore client's current stressors, symptoms, and mental health needs. Therapist elicited discussion between client and her to promote mental health support, open communication, and awareness of warning signs. Therapist educated client's on anxiety, depression, and cognitive distortions. Therapist explored client's unrealistic expectations and helped client set realistic goals to promote mental well-being. Therapist used strengths- perspective to help client focus on progress. Client Response:: Client responded well to session, engaged throughout. Client openly communicating with , Girma, about client?s mental health needs, warning signs, and symptoms. Client shared it is helpful when her listens and helps client create strategies for distractions. However, client reported she would like Girma to avoid saying things such as ?just be positive? as client shares it makes her feel increased anxiety. Client and Girma expressed they both feel helpless at times as client does not always know what triggers anxiety and depression and what could be helpful. With therapist elicitation, client reflected that her negative thinking, unrealistic expectations, and use of comparison are exacerbating client?s symptoms and creating a negative maintenance cycle. Girma reported ?she wants it fixed now and she is using google a lot? which both Girma and client agreed does not benefit client?s mental health. Client stated she experiences frustration with her somatic symptoms and loss of appetite, but demonstrated good insight as client shared ? I know focusing on it only makes it worse.? Client shared she continues to have ruminations regarding mental health and ?what if it doesn?t get better.? Client able to challenge some of her negative thoughts and reflected that she has made some progress. Girma stated client has progressed with being more receptive and ? having some good days.? Girma and client discussed ways client could incorporate a more structured routine into her day to reduce depressive symptoms and increase motivation. Client was receptive to working on a lesson plan for when client returns to school. Client also shared it may be helpful to start exercising more and avoid internet searches. Risks/Concerns:: Client denies suicidal ideation, plan, and intent as of . Client identifies family as a protective factor and reports plan to spend time with a friend this Monday which demonstrates future orientation. Progress Toward Goals/Plan:: Client progressing towards treatment goals as evidenced by her report of reduced agitation, restlessness, and overall anxiety. Client continues to report increased anxiety in the mornings that subsides in severity in the afternoons. Client endorses a depressed mood, decreased appetite, and rumination. Client progressing with implementing healthy coping skills such as utilizing social supports and challenging negative thinking. Client to discharge from [facility] on 09/05/17 and begin IOP program to promote gains and mood stability. Time Stopped:: 13:25
--- NOTE | 2017-09-04 13:52 | BH.SGPN_ITS ---
Service Group Progress Note - Session Psychotherapy Session #2 Date Open:: 09/04/17 group member Time Started:: 10:11 Time Stopped:: 11:03 Targeted Problem #:: 1 Type of Group:: Illness Management Goal of Group:: The goal of group was to increase understanding of the benefits social support provides in mental health wellness. Another goal was to increase self-awareness of the barriers that prevent client to seeking support or utilizing the support they have. Client Response/Progress/Benefit:: Client responded well to session, active participant. Client connected with the quote sharing you need your supports to help you when you don't know what to do. Client reported having support is beneficial because they can help see warning signs and find solutions to problems. Client shared her family is a big support as they provide love and a purpose to client. Client stated although she has supports in her life she does not always utilize them. Client identified her barriers for seeking support as I don't want to be a burden and feeling doomed. Client connected with peers who have also had this barrier and was able to increase understanding how negative thoughts can keep client from getting the help she needs. Client appeared to benefit from increasing awareness of the benefits of social support as well as identifying barriers. Client progressing as shown by her report of increased engagement with her supports despite negative core beliefs, but can continue to benefit from challenging cognitive distortions. Eye Contact:: Good Motor Activity:: Restless Appearance:: Casual Speech:: Appropriate Mood:: Anxious, Dysthymic Affect:: Constricted Thoughts:: Linear, No evidence of hallucinations/delusions noted Staff Interventions:: Therapist led a group discussion about importance of social supports. Therapist facilitated an activity that required the group members to utilize support from each other. Therapist utilized the activity as a tool to connect the importance of accepting social support. Therapist provided support through reflective listening and giving feedback. Psychotherapy Session #3 Date Open:: 09/04/17 group members Time Started:: 11:13 Time Stopped:: 12:05 Targeted Problem #:: 1 Type of Group:: Functional Skills Development Goal of Group:: The goal of group was to increase understanding of the different types of social support. Another goal was to identify one type of support the client?s desire and establish one small step towards achieving that support. Client Response/Progress/Benefit:: Client responded well to session, engaged but quiet at times. Client helped the group identify different types of support and how each type can positive impact mental health. Client shared she currently uses personal, spiritual, and professional social supports, but client would like to increase her professional supports. Client stated she would like to find a new psychiatrist who will actually listen to me. Client reported she plans to research psychiatrists in the area as her strategy to increase this support. Client appeared to benefit from increasing awareness of the type of support she can strengthen. Client progressing as shown by her report of less restlessness and implementing coping skills, but continues to struggle with rumination. Eye Contact:: Good Motor Activity:: Restless Appearance:: Casual Speech:: Appropriate Mood:: Anxious, Dysthymic Affect:: Constricted Thoughts:: Linear, No evidence of hallucinations/delusions noted Staff Interventions:: Therapist facilitated group discussion on the different types of social support and importance of each type of support. A social support worksheet, was utilized to give clients direction in identifying which type of support they desired, how it will help, and identifying the first small step towards the desired support. Therapist provided homework for each group member to try and accomplish the one small step each group member identified on the worksheet.
--- NOTE | 2017-09-04 14:27 | BH.SGPN_ITS ---
Service Group Progress Note - Session Psychotherapy Session #2 Date Open:: 08/29/17 Time Started:: 10:10 Time Stopped:: 11:04 Targeted Problem #:: 1 Type of Group:: Illness Management - 7 Participants Goal of Group:: To increase understanding of mindfulness and explore the benefits of mindfulness and what thoughts are prohibiting group members from staying in the here and now. Client Response/Progress/Benefit:: Client entered session alert and attentive AEB nodding in agreement with peers and taking notes. Client contributed well to group. Client participated in group discussion about the difficulties of staying in the present moment. Client participated in group activity designed to reduce negative thoughts and current stressors. Client completed stressor worksheet and was tearful throughout much of the activity. Client identified various stressors including, ?never going to get better, stressing out my and my kids, and not know what?s wrong with me.? Client elaborated to say, ?I just don?t see how any of this is going to help. I had a break down in front of my daughter.? Therapist informed client about the effects of depression and feelings of hopelessness and peers provided support. Client benefitted from group by identifying current stressors in life and the impact they have on daily functioning. Progress noted in client?s ability to identify stressors in life. Continued treatment necessary to decrease levels of anxiety and depressive symptoms. Eye Contact:: Fair Motor Activity:: Appropriate Appearance:: Casual Speech:: Appropriate Mood:: Anxious - boucing legs Affect:: Congruent Thoughts:: Linear, Logical, No evidence of hallucinations/delusions noted Staff Interventions:: Therapist facilitated discussion about mindfulness and benefits mindfulness practice can have. Therapist led group in an experiential activity designed to reduce negative thoughts and worries and bring client into the present moment and practice techniques designed to reduce anxiety and stress. Therapist provided a worksheet to complete that asked questions about possible stressor and overwhelming thoughts that take up their attention. Therapist led in the processing of the activity, worksheet, and assisted client in connecting how when faced with overwhelming thoughts or negative self-talk and the impact it has to daily functioning. Psychotherapy Session #3 Date Open:: 08/29/17 Time Started:: 11:10 Time Stopped:: 12:05 Targeted Problem #:: 1 Type of Group:: Functional Skills Development - 7 Participants Goal of Group:: To identify the impact that negative thinking patterns has had on group members lives and how using mindfulness techniques and coping strategies can assist group members in managing overwhelming thoughts and feelings. Client Response/Progress/Benefit:: Client was alert and attentive. Client participated in group discussion about coping strategies to use to bring client back to the here and now and provided examples of coping strategies she uses such as yoga. Client created a mindfulness kit and chose things that she thought looked pretty and all the coping skills to practice. Client was beginning to feel overwhelmed which skills to choose from and peers provided support and encouraged her to take her time. Client created a stress ball and identified the coping strategies she would use to decrease her worries as, ? [id number], breathing, SOS, and being kind to myself.? Client benefitted from creating a mindfulness to that includes tangible items that can help client to remember to use positive skills that can be helpful to her identifying ruminating thoughts. Progress noted in client?s ability to identify coping skills that are beneficial to her stressors. Continued treatment necessary to decrease anxiety levels. Eye Contact:: Good Motor Activity:: Appropriate Appearance:: Casual Speech:: Appropriate Mood:: Anxious Affect:: Congruent Thoughts:: Linear, Logical, No evidence of hallucinations/delusions noted Staff Interventions:: Therapist discussed varying coping strategies to use to reduce ruminating thoughts. Therapist provided each group member with various types of items and asked each member to select five items that represent something that would be helpful in creating awareness of warning signs and that will assist in bringing clients back to present moment. Therapist facilitated group processing of the mindfulness kits that each group member created. Therapist used open-ended questions to encourage elaboration of each time chosen for their kits. Therapist helped clients connect how the mindfulness kits can be used as a prevention tool and reminder to use mindfulness strategies.
--- NOTE | 2017-09-04 14:29 | BH.SGPN_ITS ---
Service Group Progress Note - Session Psychotherapy Session #2 Date Open:: 09/01/17 Time Started:: 10:15 Time Stopped:: 11:06 Targeted Problem #:: 1 Type of Group:: Illness Management - 9 Participants Goal of Group:: To increase understanding of resilience and the importance of looking at problems in different ways. Client Response/Progress/Benefit:: Client entered session alert and attentive. Client appeared anxious AEB bouncing legs. Client connected with the day?s quote stating, ?After experiencing bad things one after another it feels like you can?t climb out and it?s overwhelming and feels impossible.? Client participated in group activity that allowed client to use problem solving skills in an area that may appear impossible but once working as a group and using different perspectives to solve the problem client was able to successfully complete activity. Client benefitted from group by gaining greater awareness of how one?s outlook can impact mental health. Progress noted in client?s ability to complete activity despite high anxiety levels. Continued treatment necessary to reduce anxiety levels and implement coping skills. Eye Contact:: Good Motor Activity:: Appropriate Appearance:: Casual Speech:: Appropriate Mood:: Anxious Affect:: Congruent Thoughts:: Linear, Logical, No evidence of hallucinations/delusions noted Staff Interventions:: Therapist facilitated discussion about resilience and the importance of being resilient in the face of adversity. Therapist led group in an activity that would initially seem impossible to complete, but once group members looked at the problem in a different way they would be able to see alternative solutions. Therapist utilized the activity as a tool to discuss overcoming those situations that seem impossible to get through.
--- NOTE | 2017-09-04 14:31 | BH.SGPN_ITS ---
Service Group Progress Note - Session Psychotherapy Session #1 Date Open:: 09/04/17 Time Started:: 09:06 Time Stopped:: 10:00 Targeted Problem #:: 1 Type of Group:: Process - 7 Participants Goal of Group:: The goal of today's group was to check-in with client's mood, stressors, and positives, review homework, and to introduce the topic of the day. Client Response/Progress/Benefit:: Client entered session alert, attentive, and willing to participate. Client shared that she had met with the psychiatrist and was taken off of her Lexapro and states, ?my anxiety has dropped about 50%. ? She reports feeling relief from anxiety symptoms on Monday and was able to eat dinner, watch tv, and spend time with children which she states, ?Normally I can?t do that because I?m up pacing or I feel like I need to go to the hospital.? She shared how she still wakes up with a, ?knot in my stomach and a sense of dread but it?s not as bad as it used to be.? She indicates her emotion ?more hopeful.? Client benefitted from group by receiving support and encouragement from peers and celebrating her reduction in anxiety. Progress noted in client?s affect and positive outlook. Continued treatment necessary to implement coping skills to manage anxiety related symptoms. Eye Contact:: Good Motor Activity:: Appropriate Appearance:: Casual Speech:: Appropriate Mood:: Euthymic, Anxious Affect:: Full Thoughts:: Linear, Logical, No evidence of hallucinations/delusions noted Staff Interventions:: Therapist used open-ended questions to elicit information about client's current stressors and mood. Therapist was supportive by using active listening and reflection.
--- NOTE | 2017-09-05 12:38 | BH.SGPN ---
Service Group Progress Note - Session Psychotherapy Session #1 Date Open:: 09/05/17 Time Started:: 09:04 Time Stopped:: 09:58 Targeted Problem #:: 1 Type of Group:: Process - 5 Participants Goal of Group:: The goal of today's group was to check-in with client's mood, stressors, and positives, review homework, and to introduce the topic of the day. Client Response/Progress/Benefit:: Client entered session alert and attentive. Client reminisced about her weekend and shared that it was good but has begun noticing her depression now that her anxiety has decreased. Client states, I wont get better. The meds fixed everything. Counselor discussed how medications can often mask emotions and now the emotions are coming back and she can begin working on them. Client was receptive but stated, I cant do it without meds. Client indicated her emotion as uncertain and stated, I just dont see the point in anything. Client benefitted from group by receiving support from peers. Limited progress noted due to clients reluctance to attempt new coping skills instead of relying on medications. Continued treatment necessary to decrease anxiety levels and implement healthy coping skills. Eye Contact:: Good Motor Activity:: Appropriate Appearance:: Casual Speech:: Appropriate Mood:: Euthymic, Anxious Affect:: Full Thoughts:: Linear, Logical, No evidence of hallucinations/delusions noted Staff Interventions:: Therapist used open-ended questions to elicit information about client's current stressors and mood. Therapist was supportive by using active listening and reflection. Psychotherapy Session #3 Date Open:: 09/05/17 Time Started:: 11:10 Time Stopped:: 12:10 Targeted Problem #:: 1 Type of Group:: Functional Skills Development - 6 Participants Goal of Group:: To identify what stressors have control over and what stressors have no control over. Client Response/Progress/Benefit:: Client was again alert and attentive throughout group. Client was a big contributor to group today and participated in group activity designed to elicit stress from client and determine how client manages stressful situations. Client collaborated with peers to successfully complete group activity and was able to identify her current coping strategies to manage stress as, rumination and trying to find answers to things that are outside of my control. Client benefitted from identifying stressors and way to reduce their impact as well as identifying her need to, reevaluate how I approach situations and adopt new strategies. Progress noted in client ability to complete activity despite anxiety. Continued treatment necessary to reduce anxiety levels. Eye Contact:: Good Motor Activity:: Appropriate Appearance:: Casual Speech:: Appropriate Mood:: Euthymic, Anxious Affect:: Full Thoughts:: Linear, Logical, No evidence of hallucinations/delusions noted Staff Interventions:: Therapist facilitated discussion about control versus no control and helped group members connect the concept to stressors. Therapist led an activity in which group members differentiated which stressors are in their control and which are out of their control. Therapist processed with group if the stressors were in the right category. Therapist led discussion about importance of putting forth more energy on those stressors they can control.
--- NOTE | 2017-09-05 13:55 | BH.SGPN ---
Service Group Progress Note - Session Psychotherapy Session #2 Date Open:: 09/05/17 Time Started:: 10:05 Time Stopped:: 10:57 Targeted Problem #:: 1 Type of Group:: Illness Management Goal of Group:: To increase understanding of what stress is, identify current life stressors, and connect impact stressors have on mental health. Client Response/Progress/Benefit:: Client active. Spent, contributed positively discussion in listening attentively to others. Client connected with the quote reporting there has been many times in which her negative thought patterns have increased her stress level or had made things worse. Shared an example of how stress at work multiplied when she started thinking negatively an believing she could not make it any longer. Client identified her stressors to include: work, not working, anxiety, depression, no appetite, uncertainty about future, wondering if she will get better, boredom, money problems, nervous about her child that has anxiety problems. Client identified currently her biggest stressors to be anxiety and depression because seems those 2 factors tends to bring on other stressors. Seemed to benefit from increasing awareness of her current stressors and how her current response to overwhelming stress can impact her negatively. Eye Contact:: Good Motor Activity:: Appropriate Appearance:: Casual Speech:: Appropriate Mood:: Anxious, Depressed Affect:: Congruent Thoughts:: Linear, Logical, No evidence of hallucinations/delusions noted Staff Interventions:: Therapist facilitated discussion about stress. Therapist facilitated an activity in which group members were asked to identify various stressors they have in their life currently. Therapist instructed group members to indicate if certain stressors were larger than others. Therapist led processing of each members stress jar and helped them connect impact the stress has on their mental health.
--- NOTE | 2017-09-05 15:05 | BH.MDN ---
Multi-Disciplinary Note - Note 60-min Individual Time Started:: 12:30 Date: 09/05/17 Purpose of session/treatment goals addressed:: The purpose of this session was to address client's current stressors, symptoms, progress, and barriers. Another goal was to practice identifying and reframing cognitive distortions that increase anxiety and depression. Other topics included: discharge from [facility] and increasing positive emotional experiences. Eye Contact:: Good Motor Activity:: Restless - slightly Appearance:: Neat Speech:: Other - circumstantial Mood:: Anxious, Depressed Affect:: Congruent Thoughts:: Linear, No evidence of hallucinations/delusions noted Staff Interventions:: Therapist used active-listening and open-ended questions to explore client's current stressors, symptoms, and progress during PHP. Therapist utilized CBT to increase client's awareness of unhelpful thinking and help client identify and challenge those negative thinking patterns. Therapist used goal setting to help client set realistic goals and promote behavioral activation. Therapist taught client a mindfulness technique called G.L.A.D to increase client's awareness of positive emotional experiences throughout the day. Client Response:: Client responded well to session, engaged throughout. Client was receptive to engaging in a physical regulation activity to reduce anxiety during session. Client reported physical regulation and the outdoors are helpful coping skills for client. Client shared she is experiencing less anxiety symptoms since discontinuing Lexapro, but now I feel the depression creeping in. Client expressed concerns about depressive symptoms and acknowledged she is catastrophizing as client stated, depression results in suicide. Client able to challenge this thought through discussion of challenging the distortions and reminding herself that thoughts are thoughts not facts. Client reported she is struggling with coping because client does not know what triggered this depressive episode. With therapist elicitation client shared I'm having doubts about my job because I don't feel a purpose. Client stated she has seen mild progress such as less agitation, less restlessness, and increased acceptance. However, client reported I still have a lot of what if thoughts that aren't good. Client shared when she has the pessimistic what if thoughts it makes client feel more anxious and helpless. Client reported past success with challenging the negative thoughts and agreed to begin implementing the thought log technique again. Client expressed frustration with holding on to emotions rather than coping with them and letting the emotions pass. Client and therapist discussed how one's perception of emotions and events can be misconstrued because of anxiety and depression. Client stated she tends to magnify the negatives and minimize positives. Client was open to trying the GLAD technique this week to increase awareness of positives throughout client's day. Client in agreement to discharge from [facility] and begin IOP treatment. Risks/Concerns:: Client denies suicidal ideation, plan, and intent as of 09/05/17. Client identifies her children and as protective factors and reasons to live. Progress Toward Goals/Plan:: Client showing progress towards treatment goals as evidenced by her report of reduced symptoms of anxiety, agitation, and restlessness. Client reports improvements in sleep and appetite. Client continues to endorse ruminations, a depressed mood, and negative thinking which will continue to be addressed during IOP level care. Client to discharge from [facility] and be admitted to IOP starting 09/06/17. Time Stopped:: 13:23
--- NOTE | 2017-09-05 16:22 | BH.MDN_ITS ---
Multi-Disciplinary Note - Note 60-min Individual Time Started:: 12:30 Date: 09/05/17 Purpose of session/treatment goals addressed:: The purpose of this session was to address client's current stressors, symptoms, progress, and barriers. Another goal was to practice identifying and reframing cognitive distortions that increase anxiety and depression. Other topics included: discharge from PHP and increasing positive emotional experiences. Eye Contact:: Good Motor Activity:: Restless - slightly Appearance:: Neat Speech:: Other - circumstantial Mood:: Anxious, Depressed Affect:: Congruent Thoughts:: Linear, No evidence of hallucinations/delusions noted Staff Interventions:: Therapist used active-listening and open-ended questions to explore client's current stressors, symptoms, and progress during PHP. Therapist utilized CBT to increase client's awareness of unhelpful thinking and help client identify and challenge those negative thinking patterns. Therapist used goal setting to help client set realistic goals and promote behavioral activation. Therapist taught client a mindfulness technique called G.L.A.D to increase client's awareness of positive emotional experiences throughout the day. Client Response:: Client responded well to session, engaged throughout. Client was receptive to engaging in a physical regulation activity to reduce anxiety during session. Client reported physical regulation and the outdoors are helpful coping skills for client. Client shared she is experiencing less anxiety symptoms since discontinuing Lexapro, but now I feel the depression creeping in. Client expressed concerns about depressive symptoms and acknowledged she is ?catastrophizing? as client stated, depression results in suicide. Client able to challenge this thought through discussion of challenging the distortions and reminding herself that thoughts are thoughts not facts. Client reported she is struggling with coping because client does not know what triggered this depressive episode. With therapist elicitation client shared I'm having doubts about my job because I don't feel a purpose. Client stated she has seen mild progress such as less agitation, less restlessness, and increased acceptance. However, client reported I still have a lot of what if thoughts that aren't good. Client shared when she has the pessimistic what if thoughts it makes client feel more anxious and helpless. Client reported past success with challenging the negative thoughts and agreed to begin implementing the thought log technique again. Client expressed frustration with holding on to emotions rather than coping with them and letting the emotions pass. Client and therapist discussed how one's perception of emotions and events can be misconstrued because of anxiety and depression. Client stated she tends to magnify the negatives and minimize positives. Client was open to trying the GLAD technique this week to increase awareness of positives throughout client's day. Client in agreement to discharge from [facility] and begin IOP treatment. Risks/Concerns:: Client denies suicidal ideation, plan, and intent as of . Client identifies her children and as protective factors and reasons to live. Progress Toward Goals/Plan:: Client showing progress towards treatment goals as evidenced by her report of reduced symptoms of anxiety, agitation, and restlessness. Client reports improvements in sleep and appetite. Client continues to endorse ruminations, a depressed mood, and negative thinking which will continue to be addressed during IOP level care. Client to discharge from [facility] and be admitted to IOP starting 09/06/17. Time Stopped:: 13:23
--- NOTE | 2017-09-06 15:08 | BH.DS ---
Discharge Summary - Demographics Date of Admission:: 08/29/17 Discharge Date: 09/05/17 Presenting Problems at Admission:: Client is a 41-year-old female who presents to [facility] with chief complaint of depression and anxiety interfering with work and home functioning. Client reports her psychiatric symptoms have been worse since April due to increased work and family stress and have exacerbated within the past month due to multiple medication trials. At admission client endorsed severe restlessness, decreased appetite, poor concentration, a depressed mood, anhedonia, ruminations, and passive thoughts of . Client reported a history of panic attacks with her last one being in June 2016. Client stated she continues to experience somatic symptoms associated with anxiety. Client reported negative thoughts such as will this ever get better as well as hopelessness. Discharge Diagnoses:: Major depressive disorder F33.2. Generalized anxiety disorder Reason for Discharge:: Client has demonstrated progress in reducing the intensity, duration, and severity of anxiety and depression. Therefore, client no longer meets the criteria for PHP level of care. Client is transitioning to the IOP program to promote gains. - Treatment Progress During Treatment & Response: Client appeared to respond well to PHP as shown by her consistent attendance, insightful discussion, and active participation in group and individual sessions. Client was receptive to homework given by therapist and reported implementing coping skills. Client reported I'm about half way to where I want to be. Client reported discontinuing Lexapro benefited client as she now experiences less agitation, restlessness, and negative thinking. However, client continues to have decreased appetite, a depressed mood, and ruminations. Client demonstrated progress with acceptance, thought challenging, and identifying warning signs while in PHP. Client has met her treatment goals for PHP as client reports reduction in hopelessness as well as intensity and duration of anxiety and depression symptoms. Additionally, client has increased her use of social supports and reduced isolation. Issues Still to be Addressed:: Client demonstrated progress with utilizing various techniques and supports to reduce symptoms of anxiety and depression, but can continue to benefit from identifying and reframing cognitive distortions such as all or nothing thinking, catastrophizing, jumping to conclusions, and shoulds that result in increased ruminations. Client can also continue to benefit from setting small goals to promote behavioral activation, self-care, and increase self-achievement. Client continues to report unrealistic expectations of self and progress which will be addressed during IOP. Discharge Recommendations/Instructions:: Client was recommended to start IOP program to maintain progress client has made through PHP. Client was also recommended to follow up with individual counselor, Ginger Scott, and explore options for a new psychiatrist. Client recommended to continue attending small group at her [facility] as it provides emotional support for client. Discharge Handout: Complete Discharge Handout with client on aftercare options and continuity of care.
--- NOTE | 2017-09-08 12:40 | BH.SGPN_ITS ---
Service Group Progress Note - Session Psychotherapy Session #1 Date Open:: 09/05/17 Time Started:: 09:04 Time Stopped:: 09:58 Targeted Problem #:: 1 Type of Group:: Process - 5 Participants Goal of Group:: The goal of today's group was to check-in with client's mood, stressors, and positives, review homework, and to introduce the topic of the day. Client Response/Progress/Benefit:: Client entered session alert and attentive. Client reminisced about her weekend and shared that it was good but has begun noticing her depression now that her anxiety has decreased. Client states, ?I won?t get better. The meds fixed everything.? Counselor discussed how medications can often mask emotions and now the emotions are coming back and she can begin working on them. Client was receptive but stated, ?I can?t do it without meds.? Client indicated her emotion as uncertain and stated, ?I just don ?t see the point in anything.? Client benefitted from group by receiving support from peers. Limited progress noted due to client?s reluctance to attempt new coping skills instead of relying on medications. Continued treatment necessary to decrease anxiety levels and implement healthy coping skills. Eye Contact:: Good Motor Activity:: Appropriate Appearance:: Casual Speech:: Appropriate Mood:: Euthymic, Anxious Affect:: Full Thoughts:: Linear, Logical, No evidence of hallucinations/delusions noted Staff Interventions:: Therapist used open-ended questions to elicit information about client's current stressors and mood. Therapist was supportive by using active listening and reflection. Psychotherapy Session #3 Date Open:: 09/05/17 Time Started:: 11:10 Time Stopped:: 12:10 Targeted Problem #:: 1 Type of Group:: Functional Skills Development - 6 Participants Goal of Group:: To identify what stressors have control over and what stressors have no control over. Client Response/Progress/Benefit:: Client was again alert and attentive throughout group. Client was a big contributor to group today and participated in group activity designed to elicit stress from client and determine how client manages stressful situations. Client collaborated with peers to successfully complete group activity and was able to identify her current coping strategies to manage stress as, ?rumination and trying to find answers to things that are outside of my control.? Client benefitted from identifying stressors and way to reduce their impact as well as identifying her need to, ? reevaluate how I approach situations and adopt new strategies.? Progress noted in client ability to complete activity despite anxiety. Continued treatment necessary to reduce anxiety levels. Eye Contact:: Good Motor Activity:: Appropriate Appearance:: Casual Speech:: Appropriate Mood:: Euthymic, Anxious Affect:: Full Thoughts:: Linear, Logical, No evidence of hallucinations/delusions noted Staff Interventions:: Therapist facilitated discussion about control versus no control and helped group members connect the concept to stressors. Therapist led an activity in which group members differentiated which stressors are in their control and which are out of their control. Therapist processed with group if the stressors were in the right category. Therapist led discussion about importance of putting forth more energy on those stressors they can control.
== END 2017-09-05 14:00 | disposition home or self-care (01) ==
LOC: BHPHP 08:28
PROVIDERS: Visit Provider Psychiatry & Neurology Psychiatry
DX: F41.1 Generalized anxiety disorder (principal); Z79.899 Other long term (current) drug therapy; F33.2 Major depressive disorder, recurrent severe without psychotic features; E28.2 Polycystic ovarian syndrome
CPT/HCPCS: H0035; 90837; G0410

== ENCOUNTER 2017-09-06 08:30 | Outpatient (RCR) | payer OTHER, SELFPAY ==
--- NOTE | 2017-09-06 12:21 | BH.SGPN ---
Service Group Progress Note - Session Psychotherapy Session #1 Date Open:: 09/05/17 Time Started:: 09:04 Time Stopped:: 09:58 Targeted Problem #:: 1 Type of Group:: Process - 5 Participants Goal of Group:: The goal of today's group was to check-in with client's mood, stressors, and positives, review homework, and to introduce the topic of the day. Eye Contact:: Good Motor Activity:: Appropriate Appearance:: Casual Speech:: Appropriate Mood:: Euthymic, Anxious Affect:: Congruent Thoughts:: Linear, Logical, No evidence of hallucinations/delusions noted Staff Interventions:: Therapist used open-ended questions to elicit information about client's current stressors and mood. Therapist was supportive by using active listening and reflection. Psychotherapy Session #3 Date Open:: 09/05/17 Time Started:: 11:10 Time Stopped:: 12:10 Targeted Problem #:: 1 Type of Group:: Functional Skills Development - 6 Participants Goal of Group:: To identify what stressors have control over and what stressors have no control over. Eye Contact:: Good Motor Activity:: Appropriate Appearance:: Casual Speech:: Appropriate Mood:: Euthymic, Anxious Affect:: Full Thoughts:: Linear, Logical, No evidence of hallucinations/delusions noted Staff Interventions:: Therapist facilitated discussion about control versus no control and helped group members connect the concept to stressors. Therapist led an activity in which group members differentiated which stressors are in their control and which are out of their control. Therapist processed with group if the stressors were in the right category. Therapist led discussion about importance of putting forth more energy on those stressors they can control.
--- NOTE | 2017-09-06 14:56 | BH.SGPN_ITS ---
Service Group Progress Note - Session Psychotherapy Session #2 Date Open:: 09/06/17 - 10 group members Time Started:: 10:25 Time Stopped:: 11:19 Targeted Problem #:: 1 Type of Group:: Illness Management Goal of Group:: To increase understanding of what conflict is and increase awareness of how group members manage conflict. Client Response/Progress/Benefit:: Client responded well to session, quiet, but participating when prompted by therapist. Client connected with quote, nodding in agreement to peers? comments. Client identified she utilizes the a ccommodating type when responding to conflict. Client shared ?I?m a people pleaser? which results in client putting her needs last. Client recognized her current conflict resolution style negatively impacts her mental health at times as client does not assert her ideas and needs. Client seemed to benefit from increased self-awareness of how her conflict resolution style impacts her mental wellness and relationships. Client progressing as shown by her report of increased use of coping skills, but can continue to benefit from prioritizing self-care. Eye Contact:: Good Motor Activity:: Restless Appearance:: Casual Speech:: Appropriate Mood:: Anxious Affect:: Constricted Thoughts:: Racing, No evidence of hallucinations/delusions noted Staff Interventions:: Therapist facilitated discussion about conflict and conflict resolution. Therapist led group in an activity in which group members had to identify their initial response to conflict and how their response changes based on different situations. Therapist assisted clients with connecting the impact current conflict style has on their mental health. Psychotherapy Session #3 Date Open:: 09/06/17 - 9 group members Time Started:: 11:25 Time Stopped:: 12:15 Targeted Problem #:: 1 Type of Group:: Functional Skills Development Goal of Group:: To identify what contributes positively and negatively to conflict and appropriate ways to manage conflict with others. Client Response/Progress/Benefit:: Client responded well to session, active participant. Client reported prioritizing needs and listening to all sides helped the group manage conflict and come to a solution. Client helped the group identify strategies to improve conflict resolution such as managing stress and paying attention to ?mind-reading.? Client appeared to benefit from increased awareness of ways to effectively manage conflict. Client progressing as shown by report of reduced depression, but can continue to benefit from challenging negative thoughts. Eye Contact:: Good Motor Activity:: Restless - AEB shaking leg Appearance:: Casual Speech:: Appropriate Mood:: Anxious Affect:: Congruent Thoughts:: Linear, No evidence of hallucinations/delusions noted Staff Interventions:: Therapist facilitated group activity in which group members were provided with materials and had to eliminate certain items with consensus from group. Therapist processed activity, helping clients connect th roughout activity strategies each person used to manage conflict. Therapist led discussion about what contributes to conflict in a positive or negative manner. Therapist facilitated discussion about conflict resolution strategies and provided group member with a handout about effective ways to manage conflict.
--- NOTE | 2017-09-07 10:43 | BH.COMM ---
Communication Note - Communication with Client Communication Note: This therapist spoke with client on the phone as client canceled her IOP session today. Client shared she has increased agitation, hopelessness, and anxiety. Client stated she did not get good sleep last night which is contributing to her current mood and symptoms. Client reported she is able to maintain safety. Client expressed she has been isolating and looking at my phone which client shared is not helping her feel better. Therapist encouraged client to utilize healthy coping skills to promote emotional release and physical regulation. Client shared she is willing to try to do something active for 20 minutes. Client reports plan to attend group tomorrow 09/08/17.
--- NOTE | 2017-09-08 12:08 | PCM.PN.BLA ---
Progress Note This is an update to [facility] September 01, 2017 She is seen in follow-up for generalized anxiety disorder, major depressive disorder recurrent severe, and likely medication side effect. History is been obtained per interview with patient, discussion with staff, review of chart. Discussed with treatment team. If complaint not good. I cannot sleep and I cannot eat. History Patient continues to have ruminative anxiety and remains somatically focused. She reports ongoing feeling of agitation but notes that it has decreased since discontinuing the Lexapro 1 week ago. She has ruminative anxiety regarding her health and her ability to return to work. She endorses mild to moderate depressive symptoms. She continues to participate in activities including going to yoga and the grocery store. She denies suicidal or homicidal ideation. Denies symptoms consistent with psychosis. Sleeping from 10 PM to 5 AM. Notes that her sleep is interrupted between 2 AM and 5 AM. Appetite is poor. Reports nausea. Denies current vomiting or diarrhea. Notes that her nausea has improved since discontinuing Lexapro. Reports that she continues to have weight loss this week. Reviewed [employer] testing results with patient. Patient tried one dose of propranolol yesterday morning. She is uncertain if it was effective. She noted some mild lightheadedness associated. Reviewed psychiatric medication history. Reports history of Wellbutrin trial resulted in feeling amped up. Feels low-dose Cymbalta effective and tolerable for years prior to increased dose. No previous trials gabapentin or Lamictal. Mental status exam Patient is a 41-year-old female who appears her stated age. She is alert and oriented in no acute distress. Ambulatory with normal gait and station. Appropriate grooming and hygiene. Casually dressed. Good eye contact. Cooperative with interview. Psychomotor agitation. Mood depressed and anxious. Affect congruent. Speech is clear and of regular rate and volume. Language fluent. Thought process organized. Associations logical. Thought content significant for ruminative anxiety. No suicidal or homicidal ideation related to detected. No evidence of psychosis related or detected. Immediate recent and remote memory grossly intact. Attention and concentration are fair to good. Estimated intelligence fund of knowledge average. Judgment and insight are improving. Labs and testing Thyroid test in April and July unremarkable. Vitamin D 62 Further lab work will be obtained as needed Diagnosis Generalized anxiety disorder Major depressive disorder recurrent severe Medication side effect Polycystic ovary syndrome Plan She has made progress in [facility] and is appropriate for discharge from [facility] and admission to IOP. Ongoing treatment in the structured IOP setting necessary to maintain gains and prevent decompensation. Risks benefits alternatives of medications discussed with patient. Patient acknowledges understanding. She will start Neurontin 100 mg - 200mg p.o. nightly. May continue propranolol but with caution due to lightheadedness. Discussed extensively with patient. Limit benzodiazepine use continue Xanax 0.25 mg as needed for panic. Continue vitamin D, fish oil and vitamin B supplements. Encouraged to follow-up with providers for healthy living. 18 minutes of supportive psychotherapy provided. Patient acknowledges understanding and is in agreement with plan. She feels able to maintain safety. She agrees to seek help or emergency care feeling unsafe to self or others.
--- NOTE | 2017-09-08 12:24 | PN_ITS ---
Progress Note This is an update to [facility] September 01, 2017 She is seen in follow-up for generalized anxiety disorder, major depressive disorder recurrent severe, and likely medication side effect. History is been obtained per interview with patient, discussion with staff, review of chart. Discussed with treatment team. If complaint not good. I cannot sleep and I cannot eat. History Patient continues to have ruminative anxiety and remains somatically focused. She reports ongoing feeling of agitation but notes that it has decreased since discontinuing the Lexapro 1 week ago. She has ruminative anxiety regarding her health and her ability to return to work. She endorses mild to moderate depressive symptoms. She continues to participate in activities including going to yoga and the grocery store. She denies suicidal or homicidal ideation. Denies symptoms consistent with psychosis. Sleeping from 10 PM to 5 AM. Notes that her sleep is interrupted between 2 AM and 5 AM. Appetite is poor. Reports nausea. Denies current vomiting or diarrhea. Notes that her nausea has improved since discontinuing Lexapro. Reports that she continues to have weight loss this week. Reviewed [employer] testing results with patient. Patient tried one dose of propranolol yesterday morning. She is uncertain if it was effective. She noted some mild lightheadedness associated. Reviewed psychiatric medication history. Reports history of Wellbutrin trial resulted in feeling amped up. Feels low-dose Cymbalta effective and tolerable for years prior to increased dose. No previous trials gabapentin or Lamictal. Mental status exam Patient is a 41-year-old female who appears her stated age. She is alert and oriented in no acute distress. Ambulatory with normal gait and station. Appropriate grooming and hygiene. Casually dressed. Good eye contact. Cooperative with interview. Psychomotor agitation. Mood depressed and anxious. Affect congruent. Speech is clear and of regular rate and volume. Language fluent. Thought process organized. Associations logical. Thought content significant for ruminative anxiety. No suicidal or homicidal ideation related to detected. No evidence of psychosis related or detected. Immediate recent and remote memory grossly intact. Attention and concentration are fair to good. Estimated intelligence fund of knowledge average. Judgment and insight are improving. Labs and testing Thyroid test in April and July unremarkable. Vitamin D 62 Further lab work will be obtained as needed Diagnosis Generalized anxiety disorder Major depressive disorder recurrent severe Medication side effect Polycystic ovary syndrome Plan She has made progress in [facility] and is appropriate for discharge from [facility] and admission to IOP. Ongoing treatment in the structured IOP setting necessary to maintain gains and prevent decompensation. Risks benefits alternatives of medications discussed with patient. Patient acknowledges understanding. She will start Neurontin 100 mg - 200mg p.o. nightly. May continue propranolol but with caution due to lightheadedness. Discussed extensively with patient. Limit benzodiazepine use continue Xanax 0.25 mg as needed for panic. Continue vitamin D, fish oil and vitamin B supplements. Encouraged to follow-up with providers for healthy living. 18 minutes of supportive psychotherapy provided. Patient acknowledges understanding and is in agreement with plan. She feels able to maintain safety. She agrees to seek help or emergency care feeling unsafe to self or others.
--- NOTE | 2017-09-08 12:24 | BH.DR.ITP ---
Initial Treatment Plan - Patient Information Visit Information: ADMISSION DATE: EXPECTED LOS: 4-6 weeks Diagnoses:: Generalized anxiety disorder. Major depressive disorder recurrent severe - Problems/Symptoms Problem #1:: Anxiety Symptom:: Rumination, biologic disruption of sleep and appetite Problem #2:: depression Symptom:: Sad mood, anhedonia, decreased motivation
--- NOTE | 2017-09-08 12:37 | BH.SGPN_ITS ---
Service Group Progress Note - Session Psychotherapy Session #1 Date Open:: 09/08/17 Time Started:: 09:05 Time Stopped:: 10:00 Targeted Problem #:: 1 Type of Group:: Process - 6 Participants Goal of Group:: The goal of today's group was to check-in with client's mood, stressors, and positives, review homework, and to introduce the topic of the day. Client Response/Progress/Benefit:: Client entered session alert, but appeared anxious AEB bouncing legs and constantly shifting positions. Client appeared tearful and stepped out of group to calm down. Client indicated her emotion as hopeless and stated, ?things are getting worse, not better.? Client went on to share how she has only been getting 3-4 hours of sleep a night and it is interrupted, cannot eat, and is agitated all day. Therapist went over coping skills to attempt and client stated, ?I?ve tried walking, going to the grocery store and doing yoga but nothing works.? Counselor attempted to go through other options and client stated, ?I?m just so used to reaching for a medication and it taking everything away. I just want my Ativan.? Client benefitted from group support and encouragement. Limited progress noted due to client?s increased need for medication and lack of motivation to try other skills. Continued treatment necessary to increase use of skills and decrease anxiety. Eye Contact:: Fair Motor Activity:: Restless - bouncing legs and shifting in seat Appearance:: Casual Speech:: Appropriate Mood:: Anxious, Depressed Affect:: Congruent Thoughts:: Linear, Logical, No evidence of hallucinations/delusions noted Staff Interventions:: Therapist used open-ended questions to elicit information about client's current stressors and mood. Therapist was supportive by using active listening and reflection.
--- NOTE | 2017-09-08 15:18 | BH.SGPN_ITS ---
Service Group Progress Note - Session Psychotherapy Session #3 Date Open:: 09/08/17 - 5 group members Time Started:: 11:11 Time Stopped:: 12:05 Targeted Problem #:: 1 Type of Group:: Functional Skills Development Goal of Group:: Goal was to increase client?s self-awareness on their use of coping strategies and increase repertoire of healthy coping strategies. Client Response/Progress/Benefit:: Client responded well to session, quiet, but engaged through note-taking. Client reported it is important to have awareness of one?s healthy and unhealthy coping skills because without that ?we won?t know how to change.? Client helped the group develop a list of coping skills for the following categories: distraction, self-love, thought challenge, emotional release, and grounding. Client stated it is important to know have a few skills from each category as each category serves a different mental wellness purpose. Client shared it is helpful to utilize healthy coping skills because ?the way we cope can make things worse sometimes.? Client created a ' coping skills menu' which included, doing puzzles, exercising, meditating, using thought logs, and taking relaxing baths. Client appeared to benefit from gaining awareness of the various types of coping skills and developing a list of new skills to try this week. Client progressing as evidenced by her report of implementing physical regulation strategies, but continues to struggle with challenging negative thoughts. Eye Contact:: Poor Motor Activity:: Slowed Appearance:: Casual Speech:: Soft Mood:: Anxious, Dysthymic Affect:: Flat Thoughts:: Linear, No evidence of hallucinations/delusions noted Staff Interventions:: Therapist facilitated discussion about the different types of coping skills. Therapist led group in an activity in which group members were asked to brainstorm coping strategies that fit in each coping skill category. Therapist reviewed each coping strategy with the group and led a discussion about whether the coping strategies identified were healthy or unhealthy. Therapist provided homework in which group members creating a coping skills menu and would practice two skills a day.
--- NOTE | 2017-09-11 11:11 | BH.SGPN ---
Service Group Progress Note - Session Psychotherapy Session #1 Date Open:: 18 - 7 group members Time Started:: 09:05 Time Stopped:: 10:15 Targeted Problem #:: 1 Type of Group:: Process Goal of Group:: The goal of today's group was to check-in with clients and review homework from previous group session. Client Response/Progress/Benefit:: Client responded well to session, active in discussion and supportive to peers. Client reports feeling apprehensive today as she is experiencing less anxiety, but continues to have poor sleep which increases client's negative thinking. Client reported I feel better than I did when I started two weeks ago but continues to struggle with rumination and challenging cognitive distortions. Client connected with peers who have been through similar struggles and shared it's good to know there's hope. Client reported positives from the weekend such as increased appetite, less agitation, and less somatic symptoms. Client appeared to benefit from reframing negative thoughts in group as well as identifying positives. Client progressing as evidenced by her report of reduced symptoms, but continues to struggle with all or nothing thinking and emotional reasoning which could prevent progress. Eye Contact:: Good Motor Activity:: Restless Appearance:: Neat Speech:: Appropriate Mood:: Anxious Affect:: Constricted Thoughts:: Circular, No evidence of hallucinations/delusions noted Staff Interventions:: Therapist inquired about each group members previous night and current mood state. Therapist reviewed the group members homework from previous group session with the group, asking open ended questions to get more information.
--- NOTE | 2017-09-11 11:18 | BH.SGPN_ITS ---
Service Group Progress Note - Session Psychotherapy Session #1 Date Open:: 18 - 7 group members Time Started:: 09:05 Time Stopped:: 10:15 Targeted Problem #:: 1 Type of Group:: Process Goal of Group:: The goal of today's group was to check-in with clients and review homework from previous group session. Client Response/Progress/Benefit:: Client responded well to session, active in discussion and supportive to peers. Client reports feeling apprehensive today as she is experiencing less anxiety, but continues to have poor sleep which increases client's negative thinking. Client reported I feel better than I did when I started two weeks ago but continues to struggle with rumination and challenging cognitive distortions. Client connected with peers who have been through similar struggles and shared it's good to know there's hope. Client reported positives from the weekend such as increased appetite, less agitation, and less somatic symptoms. Client appeared to benefit from reframing negative thoughts in group as well as identifying positives. Client progressing as evidenced by her report of reduced symptoms, but continues to struggle with all or nothing thinking and emotional reasoning which could prevent progress. Eye Contact:: Good Motor Activity:: Restless Appearance:: Neat Speech:: Appropriate Mood:: Anxious Affect:: Constricted Thoughts:: Circular, No evidence of hallucinations/delusions noted Staff Interventions:: Therapist inquired about each group member?s previous night and current mood state. Therapist reviewed the group member?s homework from previous group session with the group, asking open ended questions to get more information.
--- NOTE | 2017-09-11 17:27 | BH.SGPN ---
Service Group Progress Note - Session Psychotherapy Session #2 Date Open:: 09/11/17 Time Started:: 10:21 Time Stopped:: 11:21 Targeted Problem #:: 1 Type of Group:: Illness Management - 8 participants Goal of Group:: To increase understanding of a crisis and improve client?s awareness of personal warning signs before crisis. Eye Contact:: Fair Motor Activity:: Appropriate Appearance:: Casual Speech:: Appropriate Mood:: Anxious Affect:: Congruent Thoughts:: Linear, Logical, No evidence of hallucinations/delusions noted Staff Interventions:: Therapist facilitated group discussion about defining a crisis and specifying various events that are considered a crisis. Therapist led group in an activity in which group members had to identify their thoughts and emotions attached to being in a crisis. Therapist provided support by using active listening and providing feedback. Psychotherapy Session #3 Date Open:: 09/11/17 Time Started:: 11:28 Time Stopped:: 12:25 Targeted Problem #:: 1 Type of Group:: Functional Skills Development - 7 participants Goal of Group:: To increase awareness of warning signs before a crisis and identify interventions/coping strategies that would help clients proactively manage potential crises. Eye Contact:: Good Motor Activity:: Appropriate Appearance:: Casual Speech:: Appropriate Mood:: Euthymic, Anxious Affect:: Congruent Thoughts:: Linear, Logical, No evidence of hallucinations/delusions noted Staff Interventions:: Therapist led the group in discussion about identifying personal warning signs before a crisis and importance of being aware of those signs. Therapist provided the group with various types of items and asked each group member to select five items that represent something that would be helpful in managing their warning signs of a crisis. Therapist facilitated group processing of the crisis emergency kits each group member created. Therapist used open-ended questions to encourage elaboration of each item chosen for their kit. Therapist helped clients connect how the crisis emergency kit could help be a crisis prevention tool.
--- NOTE | 2017-09-12 09:43 | BH.MTP_ITS ---
[facility] Treatment Plan - Patient Information Program Physician:: Ashly Morel Primary Therapist:: Natasha Ham - Psychiatric Diagnoses Psychiatric Diagnoses:: Generalized Anxiety Disorder. Major Depressive Disorder Diagnosis Code(s):: f 41.1; F 33.2 - Estimated LOS Estimated LOS (in weeks):: 6 Problem/Goal #1 - Problem/Goal #1 Stated Goal:: Client will reduce anxiety level while increasing ability to function and decreasing ruminative thoughts on a daily basis. Description of Barriers: Client has increased awareness of how negative thinking and unhealthy coping skills increase anxiety, but continues to report medication changes are the reason for increased symptoms. Client has high motivation to get better, but appears to have high expectations of self and unrealistic expectations for progress that conflict with client?s current state of functioning and creates internal conflict. Client endorses rumination, restlessness, negative thinking, and anxiety. Client reports increased implementation of healthy coping skills, but continues to ?google? and struggle with uncertainty which increases rumination and anxiety. Client is improving with challenging negative thoughts, but continues to struggle with negative thoughts of self and mental health which could hinder acceptance and progress of small goals. Functional Impact: Client reports a history of anxiety and depression, that has been managed through medication since client was in her early twenties. Client completed PHP with symptom reduction but continues to report restlessness, agitation, poor sleep, negative thinking, rumination, depressed mood, lack of concentration, and uncontrollable worries nearly every day. Client reports ?I haven?t been sleeping? as client is getting only a few hours per night which then increases anxiety and depression. Client?s symptoms have impacted her overall quality of life and ability to function at her baseline as client is currently off from work, and reports difficulty completing tasks at home and engaging with her family. Goal Relevant Strengths/Supports: Client demonstrated progress during PHP as she was able to reduce the intensity of her symptoms and increase healthy coping skills. Client presents with high motivation to get better and reports strong mental health support from family and friends. Client demonstrates good insight to warning signs, symptoms, and negative thoughts that exacerbate anxiety and depression. Client is intelligent, open-minded, and caring. Client identifies her personal strengths as having a good sense of humor and being a good and mother. Client reported implementing healthy coping skills during her time in PHP which demonstrates motivation will potentially increase her ability to progress. - Objectives Objective #1 Stated Objective: Client will identify 2-3 cognitive distortions that tend to create rumination and anxiety and learn 2-3 strategies to challenge and reframe the cognitive distortions. Interventions: Therapist will help client explore cognitive distortions that increase rumination and anxiety. Therapist will implement DBT and CBT techniques to help client identify and reframe negative thoughts while increasing client's ability to be present. Therapist will also help client increase her tolerance to uncertainty by utilizing radical acceptance. Discharge Criteria: Client will have achieved this objective when able to verbalize frequently used cognitive distortions and identify 2-3 ways to cope with them. Target Date: 10/18/17 Review Date: 10/06/17 Status: open Objective #2 Stated Objective: Client will identify 2-3 behaviors that lead to increased anxiety and replace them with 2-3 healthy coping skills. Interventions: Therapist will help client explore behaviors that keep client stuck in an unhealthy maintenance cycle of rumination and anxiety. Therapist will utilize CBT strategies to help client gain awareness of the connection between behaviors, thoughts, and emotions. Therapist will utilize cost benefit analysis to increase client's insight to the pros and cons of behaviors. Discharge Criteria: Client will have accomplished this goal when she can identify at least 2 behaviors that lead to unhealthy maintenance cycles and report replacing them with healthy coping skills. Target Date: 10/18/17 Review Date: 10/06/17 Status: open Problem/Goal #2 - Problem/Goal #2 Stated Goal:: Client will reduce depression, feelings of hopelessness, anhedonia , and negative core beliefs while increasing self-worth. Description of Barriers: Client has increased awareness of how negative thinking and unhealthy coping skills increase anxiety, but continues to report medication changes are the reason for increased symptoms. Client has high motivation to get better, but appears to have high expectations of self and unrealistic expectations for progress that conflict with client?s current state of functioning and creates internal conflict. Client endorses rumination, restlessness, negative thinking, and anxiety. Client reports increased implementation of healthy coping skills, but continues to ?google? and struggle with uncertainty which increases rumination and anxiety. Client is improving with challenging negative thoughts, but continues to struggle with negative thoughts of self and mental health which could hinder acceptance and progress of small goals. Functional Impact: Client reports a history of anxiety and depression, that has been managed through medication since client was in her early twenties. Client completed PHP with symptom reduction but continues to report restlessness, agitation, poor sleep, negative thinking, rumination, depressed mood, lack of concentration, and uncontrollable worries nearly every day. Client reports ?I haven?t been sleeping? as client is getting only a few hours per night which then increases anxiety and depression. Client?s symptoms have impacted her overall quality of life and ability to function at her baseline as client is currently off from work, and reports difficulty completing tasks at home and engaging with her family. Goal Relevant Strengths/Supports: Client demonstrated progress during PHP as she was able to reduce the intensity of her symptoms and increase healthy coping skills. Client presents with high motivation to get better and reports strong mental health support from family and friends. Client demonstrates good insight to warning signs, symptoms, and negative thoughts that exacerbate anxiety and depression. Client is intelligent, open-minded, and caring. Client identifies her personal strengths as having a good sense of humor and being a good and mother. Client reported implementing healthy coping skills during her time in PHP which demonstrates motivation will potentially increase her ability to progress. - Objectives Objective #1 Stated Objective: Client will increase self-care, physical regulation, and engagement with positive relationships to 2-3 activities a week to reduce depressive symptoms. Interventions: Therapist will help client explore barriers that keep client for engaging in enjoyable activities and develop strategies to overcome barriers. Therapist will assist client in creating weekly goals to promote self-care and purpose in life. Therapist will utilize behavioral activation strategies and decisional balance exercises to help increase client awareness of how behaviors impact emotions and thoughts. Discharge Criteria: Client will have accomplished this goal when can report engaging in at least two activities per week that promote self-care, emotional regulation, or positive relationships. Target Date: 10/18/17 Review Date: 10/06/17 Status: open Objective #2 Stated Objective: Client will identify and replace 2-3 negative thinking patterns that mediate feelings of hopelessness and low self-worth. Interventions: Through groups and individual therapy, client will be provided with education on cognitive distortions, mistaken beliefs, and identifying and combating negative self-talk. Therapist will help client explore connection between thoughts, feelings, and actions and teach client strategies to reframe distorted thoughts. Therapist will also help client identify progress by having client keep a progress log. Discharge Criteria: Client will be able to identify 2-3 negative thinking patterns and be able to effectively stop, challenge, or cope with those negative thoughts. Target Date: 10/18/17 Review Date: 10/06/17 Status: open
--- NOTE | 2017-09-12 12:38 | BH.SGPN ---
Service Group Progress Note - Session Psychotherapy Session #1 Date Open:: 09/12/17 Time Started:: 09:08 Time Stopped:: 10:00 Targeted Problem #:: 1 Type of Group:: Process - 7 Participants Goal of Group:: The goal of today's group was to check-in with client's mood, stressors, and positives, review homework, and to introduce the topic of the day. Client Response/Progress/Benefit:: Client entered session alert, attentive, and willing to participate. Client shared that she believes she is going through SSRI withdrawal and has been taken off of her Lexapro and is beginning to feel better. She reported sleeping 4 hours a night, eating better, and continuing to do yoga and walking. She reports that there may be some underlying panic going on because she often wakes up in a panic and will be unable to go back to sleep because of it. Client was able to identify that keeping busy is helpful for her and states, I just want some to tell me its going to be okay and reassure me. Client indicated her emotion as confused and benefitted from group by sharing her thoughts and receiving encouragement from others. Progress noted in clients ability to attempt coping skills and recognize what is helping her. Continued treatment necessary to decrease anxiety levels. Eye Contact:: Good Motor Activity:: Appropriate Appearance:: Casual Speech:: Appropriate Mood:: Euthymic, Anxious Affect:: Full Thoughts:: Linear, Logical, No evidence of hallucinations/delusions noted Staff Interventions:: Therapist used open-ended questions to elicit information about client's current stressors and mood. Therapist was supportive by using active listening and reflection. Psychotherapy Session #3 Date Open:: 09/12/17 Time Started:: 11:15 Time Stopped:: 12:05 Targeted Problem #:: 1 Type of Group:: Functional Skills Development - 9 Participants Goal of Group:: To identify ways of defeating cognitive distortions and rehearse defeating the identified cognitive distortion. Client Response/Progress/Benefit:: melvinnt entered session alert, attentive, and willing to engage. Client participated in small group activity in which she worked with peers to reframe negative thoughts with positive thoughts. Client was able to reframe her own negative thought of, I will never be able to sleep, eat, and function like before because my brain broke. Client reported this thought makes her feel, anxious, discouraged, and hopeless, and she is using, catastrophizing and all or nothing thinking. Her positive reframe included, I have felt better in the past and I have to be patient and wait for the withdrawal to go away. Client benefitted from the practice of using positive reframing. Progress noted in clients ability to reframe negative thoughts and identify the cognitive distortions she uses. Continued treatment necessary to decrease anxiety levels. Eye Contact:: Good Motor Activity:: Appropriate Appearance:: Casual Speech:: Appropriate Mood:: Euthymic, Anxious Affect:: Full Thoughts:: Linear, Logical, No evidence of hallucinations/delusions noted Staff Interventions:: Therapist provided group members with a handout to use as an aid when trying to defeat their unhelpful thinking. Therapist provided support by clarifying activities and providing feedback. Therapist facilitated group in the role playing of defeating cognitive distortions.
--- NOTE | 2017-09-12 15:10 | BH.MDN ---
Multi-Disciplinary Note - Note 60-min Individual Time Started:: 12:21 Date: 09/12/17 Purpose of session/treatment goals addressed:: The purpose of this session was to address, challenge, and reframe client's cognitive distortions and reinforcing behaviors that exacerbate somatic and mental health symptoms. Another goal was to utilize radical acceptance to help client focus on stressors in her control and set more realistic expectations for progress. Other topics included: self-fulfilling activities, treatment goals, and medication. Eye Contact:: Good Motor Activity:: Restless Appearance:: Casual Speech:: Rapid, Other - circumstantial Mood:: Anxious, Irritable Affect:: Congruent Thoughts:: Racing Staff Interventions:: Therapist used active listen to validate emotions as well as open-ended questions to explore reinforcing behaviors and progress. Therapist gently challenged client to increase client awareness of the maladaptive behaviors she is engaging in and how they maintain a negative maintenance cycle. Therapist introduced radical acceptance and helped client identify the potential negative impact of focusing on stressors out of client's control. Therapist provided emotional support and assisted client in identifying barriers, triggers, and progress. Therapist gave client homework aimed increasing purposeful activities and challenging ruminations. Client Response:: Client responded well to session, engaged throughout. Client expressed her frustration with lack of progress as client shared I'm not better yet and I don't know what the next step is. Client stated she stopped taking her Gabapentin which was prescribed 09/08/27 as it made client feel foggy and in a haze. Client shared she feels lost regarding medication as she stated, I don't know if I need the meds or if I don't. Client reported belief the medication changes is bringing on increased anxiety symptoms, but with therapist elicitation client acknowledged her thoughts, behaviors, and expectations are also increasing anxiety as well. Client reported she googled' yesterday which resulted in increased anxiety, comparison, and self-defeating thoughts. Client acknowledged google is not helping client, but making client feel worse. Client had insight to negative reinforcing behaviors such as googling, comparing, and jumping to conclusions that increase anxiety. Client shared she is struggling with identifying positives and client reported belief I feel this way 100% of the time. Client and therapist explored small progress client has made in the past two weeks which included: reduced restlessness, improved appetite, implementing healthy skills, challenging thoughts, exercising, less agitation, and increased socialization. Client reflected one how her constant search for reasons and whys prevents client from enjoying her progress and could create a barrier moving forward. Client stated she would like to incorporate radical acceptance and experiencing emotions nonjudgmentally in addition to thought challenge. Client also shared she is lacking routine which could be contributing to her rumination as well. Client agreed to find an activity that will promote self-efficacy and skill to occupy her mornings. Risks/Concerns:: Client denies suicidal ideation, plan, and intent as of 09/12/17. Client future oriented throughout as evidenced by her report of wanting to return to work in the next few weeks. Progress Toward Goals/Plan:: Client demonstrating progress towards her treatment goals as shown by her report of reduced intensity and severity of mental health symptoms as well as implementation of healthy coping skills. However, client continues to struggle with all or nothing thinking, focusing on stressors out of her control, and engaging in negative reinforcing behaviors which may hinder progress. Client to continue IOP to promote gains and increase emotional regulation. Time Stopped:: 13:19
--- NOTE | 2017-09-12 15:41 | BH.SGPN ---
Service Group Progress Note - Session Psychotherapy Session #2 Date Open:: 09/12/17 - group members Time Started:: 10:11 Time Stopped:: 11:10 Targeted Problem #:: 1 Type of Group:: Illness Management Goal of Group:: To increase understanding of cognitive distortions, identify examples of when have had unhelpful thinking, and increase awareness of the impact cognitive distortions have on mental health. Client Response/Progress/Benefit:: Client responded well to session, active participant. Client appeared to connect with the quote, nodding to discussion of how our thoughts can negatively or positive impact emotions. Client helped group process the negative automatic thoughts and the different types of cognitive distortions. Client reported I'm the wilde of catastrophizing. Client shared she often jumps to conclusions, magnifies, and overgeneralizes which makes me go down the rabbit hole. Client reported when she has cognitive distortions it increases anxiety and negative emotions. Client appeared to benefit from increases awareness of cognitive distortions and connecting how the distortions impact mental health. Client progressing as shown by her report of increased insight, but can continue to benefit from challenging all or nothing thinking. Eye Contact:: Fair Motor Activity:: Restless Appearance:: Casual Speech:: Appropriate Mood:: Anxious Affect:: Constricted Thoughts:: Linear, No evidence of hallucinations/delusions noted Staff Interventions:: Therapist utilized a quote as a tool to introduce topic of the day. Therapist provided group members with a handout that listed ten cognitive distortions with examples. Therapist facilitated group discussion about cognitive distortions. Therapist led group members in an activity to help them understand the impact cognitive distortions can have on emotions and behavior. Therapist provided support by using active listening and providing feedback.
--- NOTE | 2017-09-18 12:41 | BH.SGPN_ITS ---
Service Group Progress Note - Session Psychotherapy Session #1 Date Open:: 09/12/17 Time Started:: 09:08 Time Stopped:: 10:00 Targeted Problem #:: 1 Type of Group:: Process - 7 Participants Goal of Group:: The goal of today's group was to check-in with client's mood, stressors, and positives, review homework, and to introduce the topic of the day. Client Response/Progress/Benefit:: Client entered session alert, attentive, and willing to participate. Client shared that she believes she is going through SSRI withdrawal and has been taken off of her Lexapro and is beginning to feel better. She reported sleeping 4 hours a night, eating better, and continuing to do yoga and walking. She reports that there may be some underlying panic going on because she often wakes up in a panic and will be unable to go back to sleep because of it. Client was able to identify that keeping busy is helpful for her and states, ?I just want some to tell me it?s going to be okay and reassure me. ? Client indicated her emotion as confused and benefitted from group by sharing her thoughts and receiving encouragement from others. Progress noted in client? s ability to attempt coping skills and recognize what is helping her. Continued treatment necessary to decrease anxiety levels. Eye Contact:: Good Motor Activity:: Appropriate Appearance:: Casual Speech:: Appropriate Mood:: Euthymic, Anxious Affect:: Full Thoughts:: Linear, Logical, No evidence of hallucinations/delusions noted Staff Interventions:: Therapist used open-ended questions to elicit information about client's current stressors and mood. Therapist was supportive by using active listening and reflection. Psychotherapy Session #3 Date Open:: 09/12/17 Time Started:: 11:15 Time Stopped:: 12:05 Targeted Problem #:: 1 Type of Group:: Functional Skills Development - 9 Participants Goal of Group:: To identify ways of defeating cognitive distortions and rehearse defeating the identified cognitive distortion. Client Response/Progress/Benefit:: lient entered session alert, attentive, and willing to engage. Client participated in small group activity in which she worked with peers to reframe negative thoughts with positive thoughts. Client was able to reframe her own negative thought of, ?I will never be able to sleep , eat, and function like before because my brain broke.? Client reported this thought makes her feel, ?anxious, discouraged, and hopeless,? and she is using, ?catastrophizing and all or nothing thinking. Her positive reframe included, ?I have felt better in the past and I have to be patient and wait for the withdrawal to go away.? Client benefitted from the practice of using positive reframing. Progress noted in client?s ability to reframe negative thoughts and identify the cognitive distortions she uses. Continued treatment necessary to decrease anxiety levels. Eye Contact:: Good Motor Activity:: Appropriate Appearance:: Casual Speech:: Appropriate Mood:: Euthymic, Anxious Affect:: Full Thoughts:: Linear, Logical, No evidence of hallucinations/delusions noted Staff Interventions:: Therapist provided group members with a handout to use as an aid when trying to defeat their unhelpful thinking. Therapist provided support by clarifying activities and providing feedback. Therapist facilitated group in the role playing of defeating cognitive distortions.
== END 2017-09-13 23:59 ==
LOC: BHIOP 08:30
PROVIDERS: Visit Provider Psychiatry & Neurology Psychiatry
DX: F41.9 Anxiety disorder, unspecified (principal); F33.2 Major depressive disorder, recurrent severe without psychotic features; Z79.899 Other long term (current) drug therapy; E28.2 Polycystic ovarian syndrome
CPT/HCPCS: H0035; 90837; 90853

== ENCOUNTER 2017-09-14 09:00 | Outpatient (RCR) | payer OTHER, SELFPAY ==
--- NOTE | 2017-09-14 16:22 | BH.SGPN ---
Service Group Progress Note - Session Psychotherapy Session #1 Date Open:: 09/14/17 Time Started:: 09:04 Time Stopped:: 10:00 Targeted Problem #:: 1 Type of Group:: Process - 9 group members Goal of Group:: The goal of today's group was to check-in with client's mood, stressors, and positives, review homework and introduce topic for the day. Client Response/Progress/Benefit:: Client reported yesterday she did have IOP which on her days off she reported tends to be a little anxiety producing because she does not like to have nothing to do. However client shared that yesterday was actually really good day because she felt like there was some relief in her anxiety. She shared it was her daughter's birthday and was actually able to enjoy herself during the celebration. Client demonstrating progress as evidenced by client reporting decrease in anxious symptoms. However client continues to struggle with being able to identify what is helping relieve those anxious moments. She tends to have a focus on whether the medications are helping or harming her. Eye Contact:: Good Motor Activity:: Restless Appearance:: Casual Speech:: Appropriate Mood:: Anxious Affect:: Congruent Thoughts:: Linear, Logical, No evidence of hallucinations/delusions noted Staff Interventions:: Therapist used open-ended questions to elicit information about client's current stressors and mood state. Therapist was supportive by using active listening and reflection.
--- NOTE | 2017-09-14 16:33 | BH.SGPN ---
Service Group Progress Note - Session Psychotherapy Session #1 Date Open:: 09/14/17 Time Started:: 10:21 Time Stopped:: 11:13 Targeted Problem #:: 1 Psychotherapy Session #3 Date Open:: 09/14/17 Time Started:: 11:24 Time Stopped:: 12:16 Targeted Problem #:: 1
--- NOTE | 2017-09-15 12:53 | BH.SGPN ---
Service Group Progress Note - Session Psychotherapy Session #1 Date Open:: 09/15/17 Time Started:: 09:10 Time Stopped:: 10:10 Targeted Problem #:: 1 Type of Group:: Process - 3 Participants Goal of Group:: The goal of today's group was to check-in with client's mood, stressors, and positives, review homework, and to introduce the topic of the day. Client Response/Progress/Benefit:: Client shared that she has been feeling rough and things have been, good and bad and states, I dont know why Im so anxious. Client spoke about how she has, surges of anxiety at 4m and my anxiety increased and I just lay there and obsess over it. Client shares how she has to return to work in 2 weeks and feels she might have another breakdown when she returns. Therapist processed how she might be contributing to these stressors and how she can cope with this and she reports, I put more pressure on myself but I usually just reached for my meds. They were my safety net. Client indicated her emotion as hesitant and reported she was going to limit her use of googling since it increases her anxiety. Client benefitted from group by processing her stressors and how they contribute to her anxiety. Progress noted in clients awareness of how she is contributing to stressors and what she can do to reduce stress. Continued treatment necessary to reduce anxiety levels. Eye Contact:: Good Motor Activity:: Appropriate Appearance:: Casual Speech:: Appropriate Mood:: Euthymic, Anxious Affect:: Congruent Thoughts:: Linear, Logical, No evidence of hallucinations/delusions noted Staff Interventions:: Therapist used open-ended questions to elicit information about client's current stressors and mood. Therapist was supportive by using active listening and reflection.
--- NOTE | 2017-09-18 12:54 | BH.SGPN_ITS ---
Service Group Progress Note - Session Psychotherapy Session #1 Date Open:: 09/15/17 Time Started:: 09:10 Time Stopped:: 10:10 Targeted Problem #:: 1 Type of Group:: Process - 3 Participants Goal of Group:: The goal of today's group was to check-in with client's mood, stressors, and positives, review homework, and to introduce the topic of the day. Client Response/Progress/Benefit:: Client shared that she has been feeling rough and things have been, ?good and bad? and states, ?I don?t know why I?m so anxious.? Client spoke about how she has, ?surges of anxiety at 4m and my anxiety increased and I just lay there and obsess over it.? Client shares how she has to return to work in 2 weeks and feels she might have another breakdown when she returns. Therapist processed how she might be contributing to these stressors and how she can cope with this and she reports, ?I put more pressure on myself but I usually just reached for my meds. They were my safety net.? Client indicated her emotion as hesitant and reported she was going to limit her use of googling since it increases her anxiety. Client benefitted from group by processing her stressors and how they contribute to her anxiety. Progress noted in client?s awareness of how she is contributing to stressors and what she can do to reduce stress. Continued treatment necessary to reduce anxiety levels. Eye Contact:: Good Motor Activity:: Appropriate Appearance:: Casual Speech:: Appropriate Mood:: Euthymic, Anxious Affect:: Congruent Thoughts:: Linear, Logical, No evidence of hallucinations/delusions noted Staff Interventions:: Therapist used open-ended questions to elicit information about client's current stressors and mood. Therapist was supportive by using active listening and reflection.
--- NOTE | 2017-09-18 13:08 | BH.SGPN_ITS ---
Service Group Progress Note - Session Psychotherapy Session #1 Date Open:: 09/18/17 Time Started:: 09:05 Time Stopped:: 10:10 Targeted Problem #:: 1 Type of Group:: Process - 10 Participants Goal of Group:: The goal of today's group was to check-in with client's mood, stressors, and positives, review homework, and to introduce the topic of the day. Client Response/Progress/Benefit:: Client entered session alert and attentive. Client began by discussing how she gets woken up with a surge of panic and states, ?sets me off all day.? Client went on to share how she met with [facility] and found out that withdrawal is possible and states, ?It?s not just me. My system is messed up and my body has to heal. It?s nice to have some reassurance.? She reports having a rough weekend and felt better coming to group and has been attempting to find the positives in life. Client indicated her emotion as ? little hopeful? and benefitted from group by sharing her outlook and receiving support. Progress noted in client?s ability to positively reframe thoughts. Continued treatment necessary to increase daily functioning. Eye Contact:: Good Motor Activity:: Appropriate Appearance:: Casual Speech:: Appropriate Mood:: Euthymic, Anxious Affect:: Congruent Thoughts:: Linear, Logical, No evidence of hallucinations/delusions noted Staff Interventions:: Therapist used open-ended questions to elicit information about client's current stressors and mood. Therapist was supportive by using active listening and reflection. Psychotherapy Session #2 Date Open:: 09/18/17 Time Started:: 10:14 Time Stopped:: 11:10 Targeted Problem #:: 1 Type of Group:: Illness Management - 9 Participants Goal of Group:: To increase understanding and awareness of emotions connected to change and the impact those emotions can have on change. Client Response/Progress/Benefit:: Client entered session alert, attentive, and willing to engage. Client was a big contributor to group. Client participated in a small group activity designed to illustrate how the emotions of change can look and how we might respond. Client was able to successfully complete activity and participated in group discussion on the stages of change model. Client was able to identify that not all change is bad and shared how when she had her children she was scared but it turned out to be a positive. Client also able to identify that she gets frustrated when she doesn?t see results fast enough and will, ?think of the worst possible thing that can happen when it takes too long.? Client benefitted from identifying the stages of change and rating what stage she is at. Progress noted in client?s awareness into how she views change. Continued treatment necessary to reduce anxiety levels and increase use of coping skills. Eye Contact:: Good Motor Activity:: Appropriate Appearance:: Casual Speech:: Appropriate Mood:: Euthymic, Anxious Affect:: Congruent Thoughts:: Linear, Logical, No evidence of hallucinations/delusions noted Staff Interventions:: Therapist facilitated group discussion about change. Therapist led the group in an activity in which the activity was utilized as a tool to increase client?s awareness of emotions connected with change. Therapist led the processing of how each emotion was connected with change. Therapist was supportive by providing feedback and using reflective listening.
--- NOTE | 2017-09-18 13:46 | BH.SGPN_ITS ---
Service Group Progress Note - Session Psychotherapy Session #3 Date Open:: 09/18/17 - 9 group members Time Started:: 11:19 Time Stopped:: 12:15 Targeted Problem #:: 1 Type of Group:: Functional Skills Development Goal of Group:: To identify the challenges associated with making change and identify positive outcomes that have resulted from changes made in past. Another goal was to identify one change they are willing to make this week. Client Response/Progress/Benefit:: Client responded well to session, active participant. Client reported making changes can be difficult because ?life is unpredictable.? Client reported ?I get frustrated when I don?t make changes fast enough? which has acted as a barrier to her making positive change as client becomes impatient. However, client reported he has been trying to overcome those barriers and reminding herself she is making progress. Client identified ?taking time off work? as a positive change she has made. With therapist elicitation client reflected on the progress she has made with accepting getting treatment and not viewing time off as ?failing.? Client reported she would like to work on ?not googling? as a positive change moving forward. Client appeared to benefit from reflecting on a time change was positive as well as increasing awareness of the barriers to change. Client progressing as shown by her report of making positive changes to benefit her mental health, but can continue to benefit from changing unhelpful behaviors that contribute to anxiety. Eye Contact:: Fair - on phone at times Motor Activity:: Restless Appearance:: Neat Speech:: Appropriate Mood:: Anxious Affect:: Constricted Thoughts:: Linear, No evidence of hallucinations/delusions noted Staff Interventions:: Therapist led group in an activity to help group members recognize the challenges associated with change. Therapist utilized activity as a tool to identify ways to manage changes and adapt to the challenges that ensue. Therapist facilitated group discussion about positive outcomes from change. Therapist helped clients explore changes they are willing to make this week and elicited discussion on the pros and cons of making that change.
--- NOTE | 2017-09-19 10:23 | BH.MDN ---
Multi-Disciplinary Note - Note 60-min Individual Time Started:: 09:05 Date: 09/19/17 Purpose of session/treatment goals addressed:: The purpose of this session was to address client's cognitive distortions, use of coping skills, and create an action plan for returning to work. Another goal was to review progress and discuss discharge. Eye Contact:: Fair Motor Activity:: Restless - AEB shaking her leg Appearance:: Neat Speech:: Rapid Mood:: Anxious Affect:: Congruent Thoughts:: Racing - client often speaks her ruminating/ catastrophizing thought patterns out loud and ends with I don't know., No evidence of hallucinations/delusions noted Staff Interventions:: Therapist used open-ended and scaling questions to explore client's current symptoms, progress, and use of coping skills. Therapist helped client identify and reframe distorted thoughts and reviewed radical acceptance and thought challenge techniques. Therapist and client created a work action plan to help client increase confidence for managing anxiety when she returns to work. Therapist used strengths-perspective to help client reflect on progress. Client Response:: Client responded well to session, open to discussing discharge and cognitive distortions. Client reported she feels better than she did when she started and has noticed reduction in agitation and isolation and an increase in patience. Client shared I think getting off the medication helped the most, but you guys have helped me be patient and realize it won't get better overnight. Client stated she has been challenging unhelpful thoughts, exercising daily, and noting progress in a journal. Client shared she continues to have ups and downs, but she reminds herself this will pass. Client stated she has tried to stop googling as it increases rumination and anxiety. Client rated her progress as a 6.5/10 which is an increase from last week. Client shared she contributes the increase to feeling less agitated and being able to feel calmer throughout the day. Client also rated her anxiety from week one which was 10/10 to the present which is 6.5/10. Client stated, it's not all the way better but it's getting there. Client reported she continues to struggle with falling down the rabbit hole and worrying about her daughter. Client and therapist discussed focusing on stressors in her control as well as brain stormed mindfulness techniques client can do with her daughter. Client was open to creating a work action plan which included coping skills, warning signs, and supports. Client identified her warning signs to be: racing thoughts, butterflies, and not being present. Client agreed to complete the rest for homework. Risks/Concerns:: Client denies sucidial ideation, plan, and intent as of 09/19/17. Progress Toward Goals/Plan:: Client demonstrating progress towards treatment goals as client reports reduced severity of anxiety and depression as well as increased concentration and lisette. Client reported I'm starting to get little glimpses of my old self again. Client reports belief she is ready to return to work in the next few weeks and would like to discharge on 09/29/17. Client to continue IOP for maintenance of mood stability and use of coping skills. Time Stopped:: 10:05
--- NOTE | 2017-09-19 10:26 | BH.MDN_ITS ---
Multi-Disciplinary Note - Note 60-min Individual Time Started:: 09:05 Date: 09/19/17 Purpose of session/treatment goals addressed:: The purpose of this session was to address client's cognitive distortions, use of coping skills, and create an action plan for returning to work. Another goal was to review progress and discuss discharge. Eye Contact:: Fair Motor Activity:: Restless - AEB shaking her leg Appearance:: Neat Speech:: Rapid Mood:: Anxious Affect:: Congruent Thoughts:: Racing - client often speaks her ruminating/ catastrophizing thought patterns out loud and ends with I don't know., No evidence of hallucinations/ delusions noted Staff Interventions:: Therapist used open-ended and scaling questions to explore client's current symptoms, progress, and use of coping skills. Therapist helped client identify and reframe distorted thoughts and reviewed radical acceptance and thought challenge techniques. Therapist and client created a work action plan to help client increase confidence for managing anxiety when she returns to work. Therapist used strengths-perspective to help client reflect on progress. Client Response:: Client responded well to session, open to discussing discharge and cognitive distortions. Client reported she feels better than she did when she started and has noticed reduction in agitation and isolation and an increase in patience. Client shared I think getting off the medication helped the most, but you guys have helped me be patient and realize it won't get better overnight. Client stated she has been challenging unhelpful thoughts , exercising daily, and noting progress in a journal. Client shared she continues to have ups and downs, but she reminds herself this will pass. Client stated she has tried to stop googling as it increases rumination and anxiety. Client rated her progress as a 6.5/10 which is an increase from last week. Client shared she contributes the increase to feeling less agitated and being able to feel calmer throughout the day. Client also rated her anxiety from week one which was 10/10 to the present which is 6.5/10. Client stated, it 's not all the way better but it's getting there. Client reported she continues to struggle with falling down the rabbit hole and worrying about her daughter. Client and therapist discussed focusing on stressors in her control as well as brain stormed mindfulness techniques client can do with her daughter. Client was open to creating a work action plan which included coping skills, warning signs, and supports. Client identified her warning signs to be: racing thoughts, butterflies, and not being present. Client agreed to complete the rest for homework. Risks/Concerns:: Client denies sucidial ideation, plan, and intent as of 09/19/17. Progress Toward Goals/Plan:: Client demonstrating progress towards treatment goals as client reports reduced severity of anxiety and depression as well as increased concentration and lisette. Client reported I'm starting to get little glimpses of my old self again. Client reports belief she is ready to return to work in the next few weeks and would like to discharge on 09/29/17. Client to continue IOP for maintenance of mood stability and use of coping skills. Time Stopped:: 10:05
--- NOTE | 2017-09-19 12:52 | BH.SGPN_ITS ---
Service Group Progress Note - Session Psychotherapy Session #2 Date Open:: 09/19/17 Targeted Problem #:: 1 Type of Group:: Illness Management - 7 Participants Goal of Group:: To increase understanding of communication and the various types of communication. Another goal was to increase understanding of impact communication styles can have. Client Response/Progress/Benefit:: Client entered group alert and attentive but was quiet the majority of group. Client was a good contributor to group. Client engaged in group discussion of the different communication styles and identified her style as passive aggressive. Client defined passive aggressiveness for herself as, ?being pissed but to chicken to do anything in front of them.? Client benefitted from the discussion of communication styles and progress noted in client?s understanding on how her style has impacted her. Continued treatment necessary decrease anxiety levels. Eye Contact:: Good Motor Activity:: Appropriate Appearance:: Casual Speech:: Appropriate Mood:: Euthymic, Anxious Affect:: Full Thoughts:: Linear, Logical, No evidence of hallucinations/delusions noted Staff Interventions:: Therapist facilitated the group discussion about communication and explained the different types of communication. Therapist assisted group members in connecting the communication styles to the way they communicate and impact the communication style has on their relationships. Therapist provided support by using active listening and providing feedback.
--- NOTE | 2017-09-19 13:25 | BH.SGPN ---
Service Group Progress Note - Session Psychotherapy Session #3 Date Open:: 09/19/17 Time Started:: 11:24 Time Stopped:: 12:18 Targeted Problem #:: 1 Type of Group:: Functional Skills Development - 7 participants Goal of Group:: To identify important components of communication and practice specific, clear communication. Staff Interventions:: Therapist led the discussion about important components of effective communication. Therapist provided each group member with the same three materials and broke the group into pairs. Therapist facilitated a communication activity in which the group members would have to achieve a goal by using effective communication to achieve such goal. Therapist processed the activity with the group
--- NOTE | 2017-09-20 11:11 | BH.SGPN ---
Service Group Progress Note - Session Psychotherapy Session #1 Date Open:: 09/20/17 - 6 group members Time Started:: 09:02 Time Stopped:: 10:02 Targeted Problem #:: 1 Type of Group:: Process Goal of Group:: The goal of today's group was to check-in with client's mood, stressors, and positives and introduce topic for the day. Client Response/Progress/Benefit:: Client responded well to session, active participant and providing supportive statements to peers. Client reports feeling optimistic today as she shared plans to go to her school today to start getting organized for when she goes back later this month. Client stated she is having negative thoughts, especially about what others may think of her absence, but was able to challenge the thoughts by sharing I'm better than I was and nobody is perfect. Client reported yesterday was okay, but I had this underlying current of anxiety which caused client to have negative thoughts of I'm not actually getting better. Client challenged the negative thoughts and reflected that she has made progress such as waking up feeling less anxious each day. Client appeared to benefit from challenging distortions and increasing awareness of the progress she has made. Client progressing as shown by her generalization of coping skills and report of symptom reduction. Eye Contact:: Good Motor Activity:: Restless - slightly Appearance:: Neat Speech:: Appropriate Mood:: Euthymic Affect:: Full Thoughts:: Circular - client's thought patterns come back to medications and disqualifying the positives., No evidence of hallucinations/delusions noted Staff Interventions:: Therapist used open-ended questions to elicit information about client's current stressors and mood state. Therapist was supportive by using active listening and reflection. Therapist facilitated a mindfulness activity to promote emotional well-being and calmness.
--- NOTE | 2017-09-20 16:22 | BH.SGPN ---
Service Group Progress Note - Session Psychotherapy Session #2 Date Open:: 09/20/17 Time Started:: 10:20 Time Stopped:: 11:13 Targeted Problem #:: 1 Type of Group:: Illness Management Goal of Group:: To identify within self what is keeping client trapped from achieving better quality of life. Appearance:: Casual Speech:: Appropriate Mood:: Anxious Affect:: Congruent Thoughts:: Linear, No evidence of hallucinations/delusions noted Staff Interventions:: Therapist facilitated discussion about what is keeping client?s stuck from moving toward mental wellness. Therapist assisted clients in connecting how thoughts can contribute to keeping clients stuck. Therapist led discussion about barriers clients face from making changes to help one move forward. Therapist provided support by using active listening and giving feedback to others. Psychotherapy Session #3 Date Open:: 09/20/17 Time Started:: 11:20 Time Stopped:: 12:12 Targeted Problem #:: 1 Type of Group:: Functional Skills Development Goal of Group:: To identify what client can do to release self from those things that are trapping them to find more peace and quality in everyday life. Eye Contact:: Fair Motor Activity:: Appropriate Appearance:: Casual Speech:: Appropriate Mood:: Anxious Affect:: Congruent Thoughts:: Linear, No evidence of hallucinations/delusions noted Staff Interventions:: Therapist provided clients with a handout listing strategies to help one move forward in life and no longer be stuck. Therapist facilitated discussion about the different strategies, assisting clients in connecting how the strategies could benefit them. Therapist provided clients with homework to focus on one thing that is keeping them stuck and identify small steps to start moving towards mental wellness.
--- NOTE | 2017-09-22 13:48 | BH.SGPN ---
Service Group Progress Note - Session Psychotherapy Session #2 Date Open:: 09/22/17 Time Started:: 10:20 Time Stopped:: 11:10 Targeted Problem #:: 1 Type of Group:: Illness Management Goal of Group:: The goal of this session was to increase self-awareness of what is holding them back from moving towards mental wellness and discuss importance of taking action in their treatment. Staff Interventions:: Therapist facilitated discussion about what it means to take action in achieving mental health wellness. Therapist led activity in which clients were asked to identify the symptoms and things that they would like to take back control over. Therapist provided support by using active listening. Psychotherapy Session #3 Date Open:: 09/22/17 Time Started:: 11:20 Time Stopped:: 12:20 Targeted Problem #:: 1 Goal of Group:: The goal of this session was to create a 30 day action plan that provides small goals that work towards taking action on one thing they would like to take back control over. Staff Interventions:: Therapist provided materials and guidance to help clients create a 30 day action plan. Therapist provided support by giving feedback and using active listening.
--- NOTE | 2017-09-22 13:58 | BH.MDN ---
Multi-Disciplinary Note - Note 30-min Individual Time Started:: 13:00 Date: 09/22/17 Purpose of session/treatment goals addressed:: The purpose of this session was to develop alternative coping strategies to promote mindfulness and reduce anxiety. Another goal was to identify and reframe cognitive distortions that cause client to ruminate. Eye Contact:: Fair Motor Activity:: Restless Appearance:: Neat Speech:: Appropriate Mood:: Anxious Affect:: Constricted Thoughts:: Racing, No evidence of hallucinations/delusions noted Staff Interventions:: Therapist used active listening and open-ended questions to explore client's cognitive distortions, use of coping skills, and progress. Therapist helped client challenge black and white thinking errors and encouraged client to reflect on progress. Therapist and client discussed alternative mindfulness strategies that would be more active for client. Therapist gave client homework to try one of the mindfulness skills over the weekend. Client Response:: Client responded well to session, open to discussing mindfulness and cognitive distortions. Client shared she is willing to try more active mindfulness strategies as client reports low success with just sitting and breathing. Client reported she is willing to try a higher intensity workout and watch funny movies. Client expressed her frustration with progress as client shared it's like I have two bad days and then one okay day and then a bad day. Client reported she wants to more good days. Client and therapist discussed expectations and explored how to turn a bad day into a good day. Client shared if I get anxious then I write my whole day off. Client and therapist discussed the cognitive distortion behind this thought and client then challenged her perspective. Client shared she recognizes her symptoms are not as intense on bad days which demonstrates progress. Client stated she continues to be concerns about medication withdrawal and her bodies adjustment. After discussion client reported she has made progress, but she continues to have high expectations which impacts her acceptance of progress and keeps me stuck. Risks/Concerns:: Client denies suicidal ideation, plan, and intent as of 09/22/17. Progress Toward Goals/Plan:: Client showing progress towards treatment goals as shown by her report of reduced depression and more okay days. However, client continues to struggle with black and white thinking which impacts client's perspective on progress and setbacks. Client reports implementing thought challenge strategies, but shared I need to do it more often. Client to continue IOP to promote gains and challenge negative thoughts. Client's last day will be 3/16/18. Time Stopped:: 13:22
--- NOTE | 2017-09-22 15:06 | BH.SGPN ---
Service Group Progress Note - Session Psychotherapy Session #1 Date Open:: 09/22/17 Time Started:: 09:10 Time Stopped:: 10:00 Type of Group:: Process - 6 group members Goal of Group:: The goal of today's group was to check-in with client's mood, stressors, and positives, review homework and introduce topic for the day. Client Response/Progress/Benefit:: Limited participation unless prompted however attentive. Emotion for today is blah. Reports that yesterday was amazing however today her anxiety is intense. Stated that she had finally felt like she was cured and then everything came back today which makes her feel discouraged. No trigger to increased anxiety. Disappointed in relapse and feels hopeless. Group provided support and encouragement. Limited progress as she reports increased anxiety however was able to see that she had an entire day w/o any symptoms which is progress. Also able to verbalize improvment overall in symptoms since starting the program. Continue treatment to prevent decompensation and improve functioning so she may return to work. Eye Contact:: Fair Motor Activity:: Appropriate Appearance:: Neat Speech:: Appropriate Mood:: Anxious, Depressed Affect:: Congruent Thoughts:: Linear, Logical, No evidence of hallucinations/delusions noted Staff Interventions:: Therapist used open-ended questions to elicit information about client's current stressors and mood state. Therapist was supportive by using active listening and reflection
--- NOTE | 2017-09-26 16:19 | BH.SGPN_ITS ---
Service Group Progress Note - Session Psychotherapy Session #2 Date Open:: 09/26/17 - 10 participants Time Started:: 10:21 Time Stopped:: 11:12 Targeted Problem #:: 1 Type of Group:: Illness Management Goal of Group:: To increase understanding of what strengths are and identify individual strengths. Client Response/Progress/Benefit:: Client responded well to session, active participant. Client connected with the quote sharing, you have to be persistent and patient, even though I struggle with that. Client reported strengths are positive traits people have and they can help one overcome challenging times. Client identified her strengths as determination, empathetic , persistent, good sense of humor, and problem-solving. Client appeared to benefit from identifying her personal strengths and how they help client overcome hardships. Progress noted in client's improved insight and reduced intensity of symptoms, but can continue to benefit from improved mood stability. Eye Contact:: Good Motor Activity:: Restless Appearance:: Neat Speech:: Appropriate Mood:: Euthymic Affect:: Congruent Thoughts:: Racing, No evidence of hallucinations/delusions noted Staff Interventions:: Therapist facilitated discussion about what are strengths and assisted group members in identifying examples of strengths. Therapist led an activity in which group members were given the opportunity to identify five personal strengths. Therapist assisted clients in connecting the importance of recognizing personal strengths. Psychotherapy Session #3 Date Open:: 09/26/17 - 9 participants Time Started:: 11:20 Time Stopped:: 12:15 Targeted Problem #:: 1 Type of Group:: Functional Skills Development Goal of Group:: To identify what gets in their way of recognizing and utilizing their strengths and identifying ways to make strengths easier to access. Client Response/Progress/Benefit:: Client responded well to session, engaging in side conversations and joking with peers at times. Client reported it is not always easy for her to recognize and use her strengths. Client stated when she is depressed and highly anxious, client forgets to use her strengths. Client shared the what ifs and the rabbit hole keep client from utilizing her personal strengths. Client identified strategies to make accessing her strengths easier such as challenging negative thoughts and being open to support from others. Client appeared to benefit from identifying strategies to help improve her use of personal strengths. Client to continue IOP to promote mood stability and increase distress tolerance skills. Eye Contact:: Good Motor Activity:: Restless Appearance:: Neat Speech:: Appropriate Mood:: Euthymic - may be using humor to deflect from anxiety AEB the content of her jokes Affect:: Congruent Thoughts:: Linear, No evidence of hallucinations/delusions noted Staff Interventions:: Therapist utilized an activity as a tool in helping clients recognize the things that can get in their way from utilizing their strengths and identify alternative strategies to overcome those barriers. Therapist processed the activity, helping others connect challenges that keep them from recognizing and using their strengths. Therapist helped clients connect the importance of utilizing supports to build personal strengths and ways to challenge negative thoughts that prevent clients from acknowledging their strengths. Therapist provided support by using active listening and providing feedback.
--- NOTE | 2017-09-26 21:54 | BH.SGPN ---
Service Group Progress Note - Session Psychotherapy Session #1 Date Open:: 09/26/17 Time Started:: 09:06 Time Stopped:: 10:15 Targeted Problem #:: 1 Type of Group:: Process - 9 participants Goal of Group:: The goal of today's group was to check-in with client's mood, stressors, and positives, review homework. Client Response/Progress/Benefit:: Client was an active participants and openly engaged in the session. She responded well to reflecting upon her progress thus far and indicated I feel like I'm making progress, the anxiety is every other day instead of every day. Client further indicated feeling as though she is actually able to function at baseline more consistently than when first admitting to IOP program. Client indicated ongoing [id number] with the severity of her anxiety and described trying to role out all the possibilities but finding no success. Client discussed going to see her OBGYN to determine if anxiety may be caused by a something more physically related however did not find any edivdence of this. She noted that she had become overwhelmed and upset in the doctor's office which led to her DrLeigha recommending she begin taking a new medication. Client benefitted from voicing frustrations related to being prescribed a new medication as she is trying to manage her symptoms through other avenues. She indicated doing well to assert her boundaries and decline wanting the medication. Client expressed some rumination regarding the event but is trying to remind herself that she does not have to listen to every suggestion she is given. Client recommended continued IOP in to maintain stability and further increase use of thought stopping and reframing strategies. Eye Contact:: Good Motor Activity:: Appropriate Appearance:: Casual Speech:: Appropriate Mood:: Euthymic, Anxious Affect:: Full Thoughts:: Linear, Logical, No evidence of hallucinations/delusions noted Staff Interventions:: Therapist used open-ended questions to elicit information about client's current stressors and mood state. Therapist reviewed homework assigned from previous groups. Therapist was supportive by using active listening and reflection.
--- NOTE | 2017-09-27 10:20 | BH.SGPN ---
Service Group Progress Note - Session Psychotherapy Session #1 Date Open:: 09/27/17 - 5 group members Time Started:: 09:05 Time Stopped:: 10:05 Targeted Problem #:: 1 Type of Group:: Process Goal of Group:: The goal of today's group was to check-in with client's mood, stressors, and positives, review homework and introduce topic for the day. Client Response/Progress/Benefit:: Client responded well to session, active participant and providing supportive statements. Client reports feeling overwhelmed and frustrated today as client shared I'm not progressing like I want to be. Client shared she had a high anxiety day yesterday which was triggered by talking to a friend who also struggles with mental health. Client stated she has a hard time accepting and letting things go as client lets anxiety control how her days go. With therapist elicitation client able to recognize her cognitive distortions and identified progress she has made. Client was receptive to feedback from peers regarding asking for help at work and challenging cognitive distortions that may prevent client from asking for help. Client seemed to benefit from challenging negative thoughts and gaining awareness of her unhelpful maintenance cycles. Client progressing as shown by her report of reduced depression and anxiety, but continues to struggle with unrealistic expectations and black and white thinking which lead to client thinking I'm back to square one. Eye Contact:: Good Motor Activity:: Appropriate Appearance:: Neat Speech:: Appropriate Mood:: Anxious, Irritable Affect:: Constricted Thoughts:: Circular, No evidence of hallucinations/delusions noted Staff Interventions:: Therapist used open-ended questions to elicit information about client's current stressors and mood state. Therapist was supportive by using active listening and reflection.
--- NOTE | 2017-09-27 13:49 | BH.SGPN ---
Service Group Progress Note - Session Psychotherapy Session #2 Date Open:: 09/27/17 Time Started:: 10:15 Time Stopped:: 11:10 Targeted Problem #:: 1 Type of Group:: Illness Management Goal of Group:: The goal of group was to increase understanding of coping strategies and impact problems have on self. Another goal was to practice utilizing coping skills in the moment. Eye Contact:: Good Motor Activity:: Appropriate Appearance:: Casual Speech:: Appropriate Mood:: Anxious Affect:: Congruent Thoughts:: Linear, Logical, No evidence of hallucinations/delusions noted Staff Interventions:: Therapist facilitated the group discussion about coping strategies. Therapist group and activity challenge them to work together in utilize healthy coping skills in the moment. Therapist utilized the activity as a tool to process what it feels like when dealing with problems and what strategies they used to cope throughout activity.
--- NOTE | 2017-09-27 15:23 | BH.MDN_ITS ---
Multi-Disciplinary Note - Note 60-min Individual Time Started:: 10:53 Date: 09/27/17 Purpose of session/treatment goals addressed:: The purpose of this session was to work on goal 1 objective 1 of client's treatment plan. Another goal was to incorporate DBT strategies such as irby mind and discuss realistic expectations. Eye Contact:: Fair Motor Activity:: Restless - AEB leg shaking Appearance:: Neat Speech:: Appropriate Mood:: Anxious Affect:: Full Thoughts:: Circular - bringing the topic back to medication, No evidence of hallucinations/delusions noted Staff Interventions:: Therapist used open-ended questions and DBT strategies to help client identify, challenge, and reframe negative thoughts. Therapist gently challenged client on taking on too much and not utilizing social supports. Therapist used pros and cons to promote decision-making and strengths perspective to empower client. Therapist introduced the book Overcoming Unwanted Intrusive Thoughts and discussed worried voice, false comfort, and irby mind. Therapist gave client homework to reframe negative thoughts using her irby mind. Client Response:: Client responded well to session, open to discussing cognitive distortions, irby mind, and plan for returning to work. Client reported she has seen progress since starting IOP, but continues to struggle with indecisiveness regarding medications. Client stated she recently saw her crusher loader equipment operator and ?got emotional? in which her crusher loader equipment operator responded with prescribing client Wellbutrin. Client shared ?it just made me second guess myself all over again.? However, with therapist elicitation, client identified her feelings, values, and opinions matter and decided to not take the medication. Client shared she is nervous about returning to work and having increased negative thoughts such as ?what if I have a panic attack.? Client and therapist processed these thoughts and feelings while utilizing a DBT technique called Irby Mind. Client wrote down her ?worried voice? thoughts and reframed them using her Irby Mind. Client expressed the technique was helpful and it helped client problem-solve solutions. Client stated although she is nervous about work she is also excited to get back into her old routine. Client and therapist discussed strategies for success when client returns to work such as taking time for self-care, asking for help, and using her Irby Mind when a she begins to ruminate. Therapist introduced the book Overcoming Unwanted Intrusive Thoughts and client reported ?that seems like it would really help me.? Client reported willingness to continue thought challenging and setting small goals for work to reduce anxiety. Risks/Concerns:: Client denies suicidal ideation, plan, and intent as of . Progress Toward Goals/Plan:: Client has shown progress towards treatment goals as evidenced by her report of reduced depressive symptoms and increased mood stability. Client shared she continues to have good days and bad days in which client feels increased anxiety, but client reports increased use of thought challenging, acceptance, and emotional regulation. Client to discharge from [facility] 09/29/17. Client reports plan to call Dr. Sarahi Lovelace for outpatient counseling. Time Stopped:: 11:49
--- NOTE | 2017-09-29 12:02 | BH.DS ---
Discharge Summary - Demographics Date of Admission:: 09/06/17 Discharge Date: 09/29/17 Presenting Problems at Admission:: Client is a 41-year-old female who presents to [facility] following completion of the PHP program with chief complaint of anxiety, somatic symptoms, and ruminations interfering with work and home functioning. Client demonstrated progress with reducing depressive symptoms while in PHP, but continued to report feelings of hopelessness while in IOP. Client reports her psychiatric symptoms have been worse since April due to increased work and family stress, but have exacerbated within the past month due to multiple medication trials and withdrawal. At admission client endorsed restlessness, interrupted sleep, poor concentration, a depressed mood, anhedonia, agitation, rumination, and intrusive thoughts. Client stated she continues to experience somatic symptoms associated with anxiety including buzzing it comes in a wave which client contributed to medication withdrawal. Discharge Diagnoses:: Generalized Anxiety Disorder F 41.1; Major Depressive Disorder F 33.2 Reason for Discharge:: Client has made significant progress towards her treatment goals as shown by her report of reduced depression and anxiety as well as improved overall functioning. 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 - Treatment Progress During Treatment & Response: Client appeared to respond well to IOP as shown by her consistent attendance, insightful discussion, and active participation in group and individual sessions. Client was receptive to homework given by therapist and reported implementing coping skills such as thought challenging, connolly mind, and keeping a progress journal. Client reported I do think Nallely gotten a lot better since starting which client contributes to being taken off Lexapro as well as learning to be patient with myself. Client reported discontinuing Lexapro benefited client as she now experiences less agitation, restlessness, and negative thinking. Client appeared to progress as shown by her improved mood, appetite, and report of better sleep. Client demonstrated progress with acceptance, thought challenging, and identifying negative maintenance cycles while in IOP as well. Client has met her treatment goals for IOP as client reports reduction in intensity and duration of anxiety and depression symptoms. Additionally, client has increased her use of social supports, reduced isolation, accepted realistic expectations and increased self-love through use of patience. Issues Still to be Addressed:: Client has made progress with implementing healthy coping skills to reduce anxiety and rumination. Client reports thought challenging, self-compassion and patience, and connolly mind have been most helpful. Client also has demonstrated progress with reframing mental health stigma and reported she has learned to appreciate the experience. There is concern post discharge that client will get back into her busy routine and forget to make time for self-care and thought challenging. Additionally, client can continue to benefit from accepting stressors out of her control, focusing on daily progress, and challenging intrusive thoughts that lead to self-doubt and rumination. Discharge Recommendations/Instructions:: Client is recommended to follow up with Dr. Sarahi Lovelace for counseling, her initial appointment is on 10/07/17. Client has a counselor at [facility] and client reported she wanted to see how things go with Dr. Mcclain before deciding who to continue to see. Client recommended to follow up with psychiatry with Destini Duque at [facility] on 10/09/17. Additionally, client has an acupuncture appointment on 10/05/17. Discharge Handout: Complete Discharge Handout with client on aftercare options and continuity of care.
--- NOTE | 2017-09-29 12:02 | BH.AFTERPLAN ---
Aftercare Plan - Demographics Treatment End Date:: 09/29/17 Psychiatrist:: Ashly Morel Psychiatrist Office #:: [id number] PHP/IOP Therapist:: Natasha Ham Therapist Phone #:: [phone] - Medications Home Medications: Home Medications Alprazolam [Xanax] 0.25 mg PO TID PRN 09/01/17 Norgestimate-Ethinyl Estradiol [Tri-Sprintec Tablet] 1 each PO DAILY 09/01/17 Cholecalciferol (Vitamin D3) [Vitamin D3] 2,000 unit PO DAILY 09/08/17 [place]-3S/Dha/Epa/Fish Oil [Fish Oil [place]-3 Softgel] 1 each PO DAILY 09/08/17 Omeprazole [Prilosec] 20 mg PO DAILY 09/08/17 Vitamin B Complex 1 each PO DAILY 09/08/17 - Plan Details Progress/Aftercare Plan Details:: Client has demonstrated progress with implementing coping skills to reduce depression and anxiety. Client reports she has seen progress with becoming more patient and accepting of herself, symptoms, and expectations for progress. Client reported I do think I've gotten a lot better since I started. Client reported seeing progress in reduced agitation, increased patience with self, progress can go up and down. Client shared she has been able to challenge her negative thinking more and remind herself of the progress she has made. Client demonstrated progress with incorporating small steps and focusing on daily progress to increase self-esteem and confidence. Client has progressed with reducing depressive symptoms as client shared I haven't felt depressed in weeks. Client has always shown increased ability to cope with anxiety to reduce the duration and intensity through use of connolly mind, thought challenge, and mindfulness. Strategies for Success:: 1. BE PATIENT!! 2. remember getting better isn't like going up an escalator There will be good days and bad days! 3. A setback doesn't mean you are starting over! 4. Use that positive self-talk! Rabbit holes = not where you want to be! 5. Watch google use- is it helping me? or hurting me? 6. Challenge the negative thoughts! Make time for it! 7. Use your CONNOLLY MIND not your Worried voice. 8. Don't forget to reflect on progress and keep journaling! 9. Self-care!! - Appointments Appointments/Referrals to Other Services:: Client to follow up with Dr. Sarahi Lovelace for counseling on 10/07/17 and psychiatry with Destini Duque at [facility] on 10/09/17. Client has an acupuncture appointment on 10/05/17.
--- NOTE | 2017-09-29 12:07 | BH.IGGP_ITS ---
Aftercare Plan - Demographics Treatment End Date:: 09/29/17 Psychiatrist:: Ashly Morel Psychiatrist Office #:: [id number] PHP/IOP Therapist:: Natasha Ham Therapist Phone #:: [phone] - Medications Home Medications: Home Medications Alprazolam [Xanax] 0.25 mg PO TID PRN 09/01/17 Norgestimate-Ethinyl Estradiol [Tri-Sprintec Tablet] 1 each PO DAILY 09/01/17 Cholecalciferol (Vitamin D3) [Vitamin D3] 2,000 unit PO DAILY 09/08/17 [place]-3S/Dha/Epa/Fish Oil [Fish Oil [place]-3 Softgel] 1 each PO DAILY 09/08/17 Omeprazole [Prilosec] 20 mg PO DAILY 09/08/17 Vitamin B Complex 1 each PO DAILY 09/08/17 - Plan Details Progress/Aftercare Plan Details:: Client has demonstrated progress with implementing coping skills to reduce depression and anxiety. Client reports she has seen progress with becoming more patient and accepting of herself, symptoms , and expectations for progress. Client reported I do think I've gotten a lot better since I started. Client reported seeing progress in reduced agitation, increased patience with self, progress can go up and down. Client shared she has been able to challenge her negative thinking more and remind herself of the progress she has made. Client demonstrated progress with incorporating small steps and focusing on daily progress to increase self-esteem and confidence. Client has progressed with reducing depressive symptoms as client shared I haven't felt depressed in weeks. Client has always shown increased ability to cope with anxiety to reduce the duration and intensity through use of connolly mind , thought challenge, and mindfulness. Strategies for Success:: 1. BE PATIENT!! 2. remember getting better isn't like going up an escalator There will be good days and bad days! 3. A setback doesn' t mean you are starting over! 4. Use that positive self-talk! Rabbit holes = not where you want to be! 5. Watch google use- is it helping me? or hurting me? 6. Challenge the negative thoughts! Make time for it! 7. Use your CONNOLLY MIND not your Worried voice. 8. Don't forget to reflect on progress and keep journaling! 9. Self-care!! - Appointments Appointments/Referrals to Other Services:: Client to follow up with Dr. Sarahi Lovelace for counseling on 10/07/17 and psychiatry with Destini Duque at [facility] on 10/09/17. Client has an acupuncture appointment on 10/05/17.
--- NOTE | 2017-09-29 12:54 | BH.MDN ---
Multi-Disciplinary Note - Note 30-min Individual Time Started:: 12:15 Date: 09/29/17 Purpose of session/treatment goals addressed:: The purpose of this session was to create strategies for success moving forward that will promote emotional regulation and maintenance of healthy coping skills. Another goal was to reflect on client progress, establish aftercare, and address barriers. Eye Contact:: Good Motor Activity:: Restless - AEB leg shaking Appearance:: Neat Speech:: Appropriate Mood:: Euthymic, Anxious Affect:: Full Thoughts:: Linear, No evidence of hallucinations/delusions noted Staff Interventions:: Therapist used open-ended questions to reflect on client progress and establish aftercare. Therapist and client created a list of healthy coping skills, reminders, and positive messages to help client maintain progress. Therapist gave client a quote collage to provide closure and thank client for her hard work. Client Response:: Client responded well to session, reporting feeling worried about leaving the program, but recognized these feelings are normal. Client shared she has seen progress in her ability to challenge negative thoughts and focus on small wins. Client stated thought challenging, patience, and connolly mind have been the most effective coping skills she has learned in [facility]. Client reported she is worried about returning to school and what to do about maybe getting back on medication. However, with therapist elicitation client reported I can manage this I just have to take it day by day. Client identified her strategies for success as: be patient, progress isn't like going up an escalator, there will be good and bad days, setbacks don't equal failure, and use positive self-talk. Client expressed appreciation to the [facility] staff and agreed to schedule a follow up with this therapist over the phone next week. Risks/Concerns:: Client denies suicidal ideation, intent, and plan as of 09/29/17. Progress Toward Goals/Plan:: Client has made significant progress towards treatment goals as client reports reduced intensity and duration of anxiety and increased confidence in implementing coping skills. Client shared she has not experienced depressive symptoms in weeks and stated, Im more patient with myself now which helps me take this day by day. Client shared belief being off medications has been a major contributor to her success as well. Client to discharge from [facility] and follow up with outpatient counseling to promote gains and maintain mood stability. Time Stopped:: 12:40
--- NOTE | 2017-09-29 14:50 | BH.SGPN ---
Service Group Progress Note - Session Psychotherapy Session #1 Date Open:: 09/29/17 - 5 group members Time Started:: 09:08 Time Stopped:: 10:15 Targeted Problem #:: 1 Type of Group:: Process Goal of Group:: The goal of today's group was to check-in with client's mood, stressors, and positives, review homework and introduce topic for the day. Client Response/Progress/Benefit:: Client responded well to session, providing supportive statements and smiling while reflecting on progress. Client reports feeling hopeful today as she had a good experience with the integrative psychiatrist yesterday and had acupuncture. Client shared I was so nervous about it, but it really helped. Client reported I do think I've gotten a lot better since starting group. Client shared when she first came to group she was stubborn and dismissed the need for change, but when she changed her mindset and started challenging cognitive distortions client began to see positives. Client appeared to benefit from reflecting on her progress and receiving supportive statements from peers. Eye Contact:: Good Motor Activity:: Appropriate Appearance:: Neat Speech:: Appropriate Mood:: Euthymic Affect:: Full Thoughts:: Linear, No evidence of hallucinations/delusions noted Staff Interventions:: Therapist used open-ended questions to elicit information about client's current stressors and mood state. Therapist was supportive by using active listening and reflection.
--- NOTE | 2017-09-29 16:02 | BH.SGPN ---
Service Group Progress Note - Session Psychotherapy Session #2 Date Open:: 09/29/17 Time Started:: 10:20 Time Stopped:: 11:10 Targeted Problem #:: 1 Type of Group:: Illness Management - 7 participants Goal of Group:: To increase understanding of fear and explore the negative impact fear of failure can have on mental health and decision making. Client Response/Progress/Benefit:: Client responded well to session and was actively engaged in both the discussion and activity portions of the group. She shared to for her failure is encountering a set back or to stop progressing. SHe related her fear of failure back to struggling to accept her anxiety as something that is meant to be managed rather than cured. CLient made connections between her struggle to remain patient in the activity portion and impatience with her mental health. Client benefit from having to challenge herselg to be patient and accepting of the setbacks encountered throughout the activity. CLient recommended to continue to work on taking things one step at a time falling discharge from [facility] on this date. Eye Contact:: Good Motor Activity:: Appropriate Appearance:: Casual Speech:: Appropriate Mood:: Euthymic, Anxious Affect:: Full Thoughts:: Linear, Logical, No evidence of hallucinations/delusions noted Staff Interventions:: Therapist facilitated discussion about fear and impact fear of failure can have. Therapist led group in an experiential activity in which clients would fail numerous times throughout, but were given the opportunity to try again. Therapist led the processing of the activity and assisted clients with connecting how fear of failure impacted their decision making during the activity. Psychotherapy Session #3 Date Open:: 09/29/17 Time Started:: 11:16 Time Stopped:: 12:08 Targeted Problem #:: 1 Type of Group:: Functional Skills Development - 5 participants Goal of Group:: To identify the impact fear of failure has had on the group members lives and identify strategies to overcome fear of failure. Client Response/Progress/Benefit:: Client again did well to engage in session and was receptive of the discussion covering their own experiences with fear of failure. Client discussed that in the past failure has caused her to isolate, experience increased anxiety and depression, or made me afraid to try things I may enjoy. She appeared to benefit from reflecting upon what failure has taught her and expressed that past filure have Taught me it is possible to overcome and It may put me on a better path. She brainstormed potential strategies to overcome fear of failure and noted plans to continue to work on cultivating patience as well as looking back on what she has learned in IOP following discharge. Eye Contact:: Good Motor Activity:: Appropriate Appearance:: Casual Speech:: Appropriate Mood:: Euthymic, Anxious Affect:: Congruent Thoughts:: Linear, Logical, No evidence of hallucinations/delusions noted Staff Interventions:: Therapist provided each group member with a worksheet to complete that asked questions about their experiences with fear of failure. Therapist led the processing of the worksheet, helping clients connect how fear of failure has impacted them. Therapist provided support by using active listening and providing feedback.
--- NOTE | 2017-10-01 16:16 | BH.SGPN_ITS ---
Service Group Progress Note - Session Psychotherapy Session #2 Date Open:: 09/29/17 Time Started:: 10:20 Time Stopped:: 11:10 Targeted Problem #:: 1 Type of Group:: Illness Management - 7 participants Goal of Group:: To increase understanding of fear and explore the negative impact fear of failure can have on mental health and decision making. Client Response/Progress/Benefit:: Client responded well to session and was actively engaged in both the discussion and activity portions of the group. She shared to for her failure is encountering a set back or to stop progressing. SHe related her fear of failure back to struggling to accept her anxiety as something that is meant to be managed rather than cured. CLient made connections between her struggle to remain patient in the activity portion and impatience with her mental health. Client benefit from having to challenge herselg to be patient and accepting of the setbacks encountered throughout the activity. CLient recommended to continue to work on taking things one step at a time falling discharge from [facility] on this date. Eye Contact:: Good Motor Activity:: Appropriate Appearance:: Casual Speech:: Appropriate Mood:: Euthymic, Anxious Affect:: Full Thoughts:: Linear, Logical, No evidence of hallucinations/delusions noted Staff Interventions:: Therapist facilitated discussion about fear and impact fear of failure can have. Therapist led group in an experiential activity in which client?s would fail numerous times throughout, but were given the opportunity to try again. Therapist led the processing of the activity and assisted clients with connecting how fear of failure impacted their decision making during the activity. Psychotherapy Session #3 Date Open:: 09/29/17 Time Started:: 11:16 Time Stopped:: 12:08 Targeted Problem #:: 1 Type of Group:: Functional Skills Development - 5 participants Goal of Group:: To identify the impact fear of failure has had on the group members lives and identify strategies to overcome fear of failure. Client Response/Progress/Benefit:: Client again did well to engage in session and was receptive of the discussion covering their own experiences with fear of failure. Client discussed that in the past failure has caused her to isolate, experience increased anxiety and depression, or made me afraid to try things I may enjoy. She appeared to benefit from reflecting upon what failure has taught her and expressed that past filure have Taught me it is possible to overcome and It may put me on a better path. She brainstormed potential strategies to overcome fear of failure and noted plans to continue to work on cultivating patience as well as looking back on what she has learned in IOP following discharge. Eye Contact:: Good Motor Activity:: Appropriate Appearance:: Casual Speech:: Appropriate Mood:: Euthymic, Anxious Affect:: Congruent Thoughts:: Linear, Logical, No evidence of hallucinations/delusions noted Staff Interventions:: Therapist provided each group member with a worksheet to complete that asked questions about their experiences with fear of failure. Therapist led the processing of the worksheet, helping client?s connect how fear of failure has impacted them. Therapist provided support by using active listening and providing feedback.
--- NOTE | 2017-10-05 15:53 | BH.COMM ---
Communication Note - Communication with Client Communication Note: This therapist attempted to call client to follow up post IOP discharge. Therapist unable to reach client and left a message asking for a return call at client's earliest convenience.
--- NOTE | 2017-10-10 13:26 | BH.SGPN_ITS ---
Service Group Progress Note - Session Psychotherapy Session #3 Date Open:: 09/19/17 Time Started:: 11:24 Time Stopped:: 12:18 Targeted Problem #:: 1 Type of Group:: Functional Skills Development - 7 participants Goal of Group:: To identify important components of communication and practice specific, clear communication. Staff Interventions:: Therapist led the discussion about important components of effective communication. Therapist provided each group member with the same three materials and broke the group into pairs. Therapist facilitated a com munication activity in which the group members would have to achieve a goal by using effective communication to achieve such goal. Therapist processed the activity with the group
== END 2017-09-29 14:00 | disposition home or self-care (01) ==
LOC: BHIOP 09:00
PROVIDERS: Visit Provider Psychiatry & Neurology Psychiatry
DX: F41.1 Generalized anxiety disorder (principal); F33.2 Major depressive disorder, recurrent severe without psychotic features
CPT/HCPCS: H0035; 90832; 90837; 90853